=== PATIENT | male | born 1940 | race African-American/Black ===

== ENCOUNTER 2020-07-22 15:38 | Inpatient (IN) | payer MEDICAID, OTHER ==
[~2020-07-22] VITALS: Ht 172.7 cm; Wt 70.8 kg
[2020-07-22 16:50] LABS: HEMATOCRIT. 33.2 % (42.0-52.0); HEMOGLOBIN. 10.9 g/dL (14.0-18.0); MEAN CORPUSCULAR HEMOGLOBIN 29.9 pg (28.0-32.0); MEAN CORPUSCULAR VOLUME 91.1 fL (80.0-94.0); MEAN PLATELET VOLUME 8.8 fl (7.4-10.4); PLATELET 276 x1000/uL (130-400); RED BLOOD CELL COUNT 3.65 mill/uL (4.7-6.1); RED CELL DISTRIBUTION WIDTH 14.2 % (11.6-14.6)
[2020-07-22 16:59] LABS: CHLORIDE 107 mEq/L (98-107); INR 1.1; PROTHROMBIN TIME 11.3 sec (9.6-11.0)
[2020-07-22 17:21] LABS: PLATELET ESTIMATE NORMAL
[2020-07-22] MEDS ORDERED: LIDOCAINE HCL/EPINEPHRINE 1%-EPI 1:100,000 50 ML VIAL INFIL ONE (19:45)
[2020-07-22] MEDS ORDERED: LIDOCAINE HCL/EPINEPHRINE 1%-EPI 1:100,000 50 ML VIAL INFIL NR (20:00)
[2020-07-22] MEDS ORDERED: BACITRACIN 15GM TUBE TOP ONE (20:06)
[2020-07-22] MEDS ORDERED: THROMBIN (BOVINE) 5000 UNITS/VIAL TOP ONE (20:07)
[2020-07-22] MEDS ORDERED: BACITRACIN 50,000 UNITS/VIAL ONE (20:07)
[2020-07-22] MEDS ORDERED: NEOSTIGMINE METHYLSULFATE 1MG/ML 10 ML VIAL ONE (20:47)
[2020-07-22] MEDS ORDERED: FENTANYL CITRATE/PF 50MCG/ML 2ML VIAL ONE (20:47)
[2020-07-22] MEDS ORDERED: ROCURONIUM BROMIDE 10MG/ML VIAL 5ML IV ONE ×2 (20:47→21:07)
[2020-07-22] MEDS ORDERED: MIDAZOLAM HCL 2 MG/2 ML VIAL ONE (20:47)
[2020-07-22] MEDS ORDERED: PROPOFOL 200MG/20ML VIAL IV ONE (20:47)
[2020-07-22] MEDS ORDERED: SODIUM CHLORIDE 0.9% 10ML VIAL ONE (20:48)
[2020-07-22] MEDS ORDERED: SUCCINYLCHOLINE CHLORIDE 200MG/10ML IV ONE (20:48)
[2020-07-22] MEDS ORDERED: DEXAMETHASONE 4MG/ML 1ML VIAL ONE ×2 (20:48→21:27)
[2020-07-22] MEDS ORDERED: GLYCOPYRROLATE 0.2 MG/ML 2ML VIAL ONE (20:48)
[2020-07-22] MEDS ORDERED: METOCLOPRAMIDE HCL 10MG/2ML VIAL ONE (20:48)
[2020-07-22] MEDS ORDERED: PHENYLEPHRINE HCL 10 MG/ML 1ML (IV VIAL) IV ONE (20:48)
[2020-07-22] MEDS ORDERED: EPHEDRINE SULFATE 50MG/ML VIAL ONE (20:48)
[2020-07-22] MEDS ORDERED: ONDANSETRON HCL 4MG/2ML INJ ONE (20:48)
[2020-07-22] MEDS ORDERED: CEFAZOLIN SODIUM 1000MG/VIAL ONE (20:48)
[2020-07-22] MEDS ORDERED: ETOMIDATE 2MG/ML 10ML VIAL IV ONE (20:55)
[2020-07-22] MEDS ORDERED: LEVETIRACETAM 500MG PREMIX 100 ML IV NR (21:15)
[2020-07-22] MEDS ORDERED: NICARDIPINE 100 MG in SODIUM CHLORIDE 0.9% 60 ML IV PRN (21:30)
[2020-07-22] MEDS ORDERED: SODIUM CHLORIDE 0.9% 1,000 ML IV ONE (21:45)
[2020-07-22] MEDS ORDERED: ONDANSETRON HCL 4MG/2ML INJ IV PRN (21:45)
[2020-07-22] MEDS ORDERED: HYDROMORPHONE HCL/PF 2MG/ML CPJ IV PRN (21:45)
[2020-07-22] MEDS ORDERED: MORPHINE SULFATE 2 MG/ML CPJ (NOT FOR IM USE) IV PRN (21:45)
[2020-07-22] MEDS ORDERED: LABETALOL HCL 5MG/ML VIAL 20ML IV ONE (21:49)
[2020-07-22] MEDS ORDERED: CEFAZOLIN 1000MG PREMIX 50 ML IV SCH (22:00)
[2020-07-22 22:30] VITALS: BP 173/90
[2020-07-22 22:45] VITALS: BP 176/89
[2020-07-22 23:00] VITALS: BP 165/95
[2020-07-22 23:15] VITALS: BP 150/100
[2020-07-22] MEDS: NICARDIPINE 100 MG in SODIUM CHLORIDE 0.9% 60 ML IV PRN (23:27)
[2020-07-22] MEDS: MORPHINE SULFATE 4 MG/ML CPJ (NOT FOR IM USE) IV PRN (23:27)
[2020-07-22] MEDS: DEXT 5%/LACTATED RINGERS 1,000 ML IV SCH (23:28)
[2020-07-22 23:30] VITALS: BP 106/61
[2020-07-22 23:45] VITALS: BP 107/55
[2020-07-23] VITALS (82 sets, daily range): BP systolic 80–161; BP diastolic 40–97
[2020-07-23 00:34] LABS: BG CARBOXYHEMOGLOBIN 0.3 % (0.5-1.5); BG FRACTION INSPIRED OXYGEN 60; BG HCO3 ACT 16.7 mmol/L (22.0-26.0); BG METHEMOGLOBIN 0.3 % (0.0-1.5); BG OXYHEMOGLOBIN 97.4 % (94.0-97.0); BG PCO2 31.4 mmHg (35.0-45.0); BG PH 7.343 (7.350-7.450); BG PO2 124.7 mmHg (75.0-100.0); BG SAMPLE SITE ALINE; BG TOTAL HEMOGLOBIN 10.5 g/dL (12.0-18.0); BG VENT MODE VENT - AC
[2020-07-23] MEDS: PROPOFOL 10MG/ML 100ML 100 ML IV PRN ×4 (02:18→22:38)
[2020-07-23] MEDS: CEFAZOLIN 1000MG PREMIX 50 ML IV SCH ×2 (03:59→14:45)
[2020-07-23 06:17] LABS: HEMATOCRIT. 29.1 % (42.0-52.0); HEMOGLOBIN. 9.7 g/dL (14.0-18.0); MEAN CORPUSCULAR HEMOGLOBIN 30.6 pg (28.0-32.0); MEAN CORPUSCULAR VOLUME 91.3 fL (80.0-94.0); MEAN PLATELET VOLUME 9.2 fl (7.4-10.4); PLATELET 221 x1000/uL (130-400); RED BLOOD CELL COUNT 3.19 mill/uL (4.7-6.1); RED CELL DISTRIBUTION WIDTH 13.9 % (11.6-14.6)
[2020-07-23 07:07] LABS: CLARITY URINE CLOUDY (CLEAR); COLOR URINE DARK YELLOW (YELLOW); KETONES URINE TRACE (NEGATIVE); LEUKOCYTE ESTERASE URINE TRACE (NEGATIVE); NITRITE URINE NEGATIVE (NEGATIVE); OCCULT BLOOD URINE 1+ (NEGATIVE); PROTEIN URINE 2+ (NEGATIVE); SPECIFIC GRAVITY URINE 1.026 (1.005-1.030)
[2020-07-23 07:43] LABS: *BARBITURATES SCREEN URINE NEGATIVE (NEGATIVE); *BENZODIAZEPINES SCREEN URINE PRESUMTIVE POSITIVE (NEGATIVE); *COCAINE SCREEN URINE NEGATIVE (NEGATIVE)
[2020-07-23 07:44] LABS: *AMPHETAMINES SCREEN URINE NEGATIVE (NEGATIVE); METHADONE URINE SCREEN NEGATIVE (NEGATIVE); OPIATES URINE SCREEN NEGATIVE (NEGATIVE)
[2020-07-23 07:45] LABS: CANNABINOID URINE SCREEN NEGATIVE (NEGATIVE); PHENCYCLIDINE URINE SCREEN NEGATIVE (NEGATIVE)
[2020-07-23 08:38] LABS: BG BASE EXCESS -7.3 mmol/L (-2.0-2.0); BG CARBOXYHEMOGLOBIN 0.4 % (0.5-1.5); BG HCO3 ACT 16.6 mmol/L (22.0-26.0); BG METHEMOGLOBIN 0.4 % (0.0-1.5); BG OXYHEMOGLOBIN 98.2 % (94.0-97.0); BG PCO2 27.8 mmHg (35.0-45.0); BG PH 7.395 (7.350-7.450); BG PO2 165.7 mmHg (75.0-100.0); BG SAMPLE SITE ALINE; BG TOTAL HEMOGLOBIN 8.6 g/dL (12.0-18.0); BG VENT MODE VENT - AC
[2020-07-23] MEDS: DEXAMETHASONE 4MG/ML 1ML VIAL IV SCH ×3 (08:56→17:54)
[2020-07-23] MEDS: PANTOPRAZOLE SODIUM 40 MG/VIAL IV SCH (08:56)
[2020-07-23] MEDS ORDERED: LEVETIRACETAM 500MG PREMIX 100 ML IV SCH (09:00)
[2020-07-23] MEDS: LEVETIRACETAM 500MG PREMIX 100 ML IV SCH ×2 (12:24→22:00)
[2020-07-23 14:46] LABS: PLATELET ESTIMATE NORMAL
[2020-07-23] MEDS: NICARDIPINE 100 MG in SODIUM CHLORIDE 0.9% 60 ML IV PRN (22:02)
[2020-07-23] MEDS: DEXT 5%/LACTATED RINGERS 1,000 ML IV SCH (22:05)
[2020-07-24] VITALS (78 sets, daily range): BP systolic 95–151; BP diastolic 40–75
[2020-07-24] MEDS: DEXAMETHASONE 4MG/ML 1ML VIAL IV SCH ×4 (00:33→18:24)
[2020-07-24] MEDS: CEFAZOLIN 1000MG PREMIX 50 ML IV SCH ×2 (02:20→14:43)
[2020-07-24 05:50] LABS: HEMATOCRIT. 28.5 % (42.0-52.0); HEMOGLOBIN. 9.4 g/dL (14.0-18.0); MEAN CORPUSCULAR HEMOGLOBIN 29.9 pg (28.0-32.0); MEAN CORPUSCULAR VOLUME 90.8 fL (80.0-94.0); MEAN PLATELET VOLUME 8.9 fl (7.4-10.4); PLATELET 238 x1000/uL (130-400); RED BLOOD CELL COUNT 3.14 mill/uL (4.7-6.1); RED CELL DISTRIBUTION WIDTH 14.4 % (11.6-14.6)
[2020-07-24] MEDS: PROPOFOL 10MG/ML 100ML 100 ML IV PRN ×3 (06:19→22:44)
[2020-07-24] MEDS ORDERED: BACITRACIN 15GM TUBE TOP ONE (06:56)
[2020-07-24] MEDS ORDERED: BACITRACIN 50,000 UNITS/VIAL ONE (06:57)
[2020-07-24] MEDS ORDERED: THROMBIN (BOVINE) 5000 UNITS/VIAL TOP ONE (06:57)
[2020-07-24] MEDS ORDERED: SODIUM CHLORIDE 0.9% INJ 10ML FLUSH IVF ONE (06:57)
[2020-07-24] MEDS ORDERED: ROCURONIUM BROMIDE 10MG/ML VIAL 5ML IV ONE (07:10)
[2020-07-24] MEDS ORDERED: PHENYLEPHRINE HCL 10 MG/ML 1ML (IV VIAL) IV ONE (07:39)
[2020-07-24] MEDS ORDERED: CEFAZOLIN SODIUM 1000MG/VIAL ONE (07:39)
[2020-07-24] MEDS: PANTOPRAZOLE SODIUM 40 MG/VIAL IV SCH (09:44)
[2020-07-24] MEDS: LEVETIRACETAM 500MG PREMIX 100 ML IV SCH ×2 (09:45→21:56)
[2020-07-24 11:23] LABS: PLATELET ESTIMATE NORMAL
[2020-07-24 11:48] LABS: BG BASE EXCESS -13.5 mmol/L (-2.0-2.0); BG CARBOXYHEMOGLOBIN 0.2 % (0.5-1.5); BG FRACTION INSPIRED OXYGEN 45; BG HCO3 ACT 10.2 mmol/L (22.0-26.0); BG METHEMOGLOBIN 1.3 % (0.0-1.5); BG OXYHEMOGLOBIN 96.5 % (94.0-97.0); BG PH 7.397 (7.350-7.450); BG PO2 173.1 mmHg (75.0-100.0); BG SAMPLE SITE ALINE; BG TOTAL HEMOGLOBIN 5.4 g/dL (12.0-18.0); BG TOTAL RESPIRATORY RATE 18 b/min; BG VENT MODE VENT - AC
[2020-07-24] MEDS: NICARDIPINE 100 MG in SODIUM CHLORIDE 0.9% 60 ML IV PRN (13:43)
[2020-07-24] MEDS: DEXT 5%/LACTATED RINGERS 1,000 ML IV SCH (14:43)
[2020-07-24 17:10] LABS: BG BASE EXCESS -5.6 mmol/L (-2.0-2.0); BG CARBOXYHEMOGLOBIN 0.3 % (0.5-1.5); BG DEOXYHEMOGLOBIN 1.7 % (0.0-5.0); BG HCO3 ACT 17.4 mmol/L (22.0-26.0); BG METHEMOGLOBIN 0.2 % (0.0-1.5); BG OXYGEN SATURATION 98.3 % (92.0-98.5); BG OXYHEMOGLOBIN 97.8 % (94.0-97.0); BG PCO2 26.2 mmHg (35.0-45.0); BG PO2 141.3 mmHg (75.0-100.0); BG SAMPLE SITE ALINE; BG TOTAL HEMOGLOBIN 9.9 g/dL (12.0-18.0); BG VENT MODE VENT - AC
[2020-07-24] MEDS: MORPHINE SULFATE 4 MG/ML CPJ (NOT FOR IM USE) IV PRN (21:58)
[2020-07-24] MEDS ORDERED: DEXAMETHASONE 4MG/ML 1ML VIAL IV SCH (22:00)
[2020-07-24] MEDS: DEXAMETHASONE 10 MG/ML VIAL IV SCH (22:12)
[2020-07-24] MEDS ORDERED: DEXTROSE 50% WATER 50ML SYRINGE IV PRN (23:45)
[2020-07-24] MEDS: BLOOD SUGAR DIAGNOSTIC STRIP TEST SCH (23:55)
[2020-07-25] VITALS (88 sets, daily range): BP systolic 57–194; BP diastolic 35–126
[2020-07-25] MEDS: INSULIN LISPRO 100 UNITS/ML SUBCUT SCH ×5 (00:01→23:16)
[2020-07-25] MEDS: NICARDIPINE 100 MG in SODIUM CHLORIDE 0.9% 60 ML IV PRN ×3 (00:12→13:34)
[2020-07-25] MEDS: CEFAZOLIN 1000MG PREMIX 50 ML IV SCH ×3 (02:49→17:01)
[2020-07-25] MEDS: DEXAMETHASONE 10 MG/ML VIAL IV SCH ×4 (04:33→21:00)
[2020-07-25] MEDS: BLOOD SUGAR DIAGNOSTIC STRIP TEST SCH ×4 (05:52→23:08)
[2020-07-25 05:58] LABS: HEMATOCRIT. 26.6 % (42.0-52.0); MEAN CORPUSCULAR HEMOGLOBIN 30.2 pg (28.0-32.0); MEAN CORPUSCULAR VOLUME 89.1 fL (80.0-94.0); PLATELET 244 x1000/uL (130-400); RED BLOOD CELL COUNT 2.99 mill/uL (4.7-6.1)
[2020-07-25] MEDS ORDERED: MORPHINE SULFATE 4 MG/ML CPJ (NOT FOR IM USE) IV SCH (07:00)
[2020-07-25] MEDS: DEXT 5%/LACTATED RINGERS 1,000 ML IV SCH (08:00)
[2020-07-25] MEDS: PROPOFOL 10MG/ML 100ML 100 ML IV PRN ×3 (09:22→23:14)
[2020-07-25] MEDS: PANTOPRAZOLE SODIUM 40 MG/VIAL IV SCH (09:41)
[2020-07-25] MEDS: LEVETIRACETAM 500MG PREMIX 100 ML IV SCH ×2 (09:42→20:59)
[2020-07-25 10:14] LABS: PLATELET ESTIMATE NORMAL
[2020-07-25] MEDS: MORPHINE SULFATE 4 MG/ML CPJ (NOT FOR IM USE) IV PRN ×2 (10:29→23:11)
[2020-07-25] MEDS ORDERED: CEFAZOLIN SODIUM 1000MG/VIAL IV SCH (14:00)
[2020-07-25] MEDS ORDERED: PROPOFOL 10MG/ML 100ML 100 ML IV PRN (18:00)
[2020-07-26] VITALS (79 sets, daily range): BP systolic -5–140; BP diastolic -5–117
[2020-07-26] MEDS: CEFAZOLIN 1000MG PREMIX 50 ML IV SCH ×3 (01:34→17:17)
[2020-07-26] MEDS: DEXAMETHASONE 10 MG/ML VIAL IV SCH (04:28)
[2020-07-26] MEDS: PROPOFOL 10MG/ML 100ML 100 ML IV PRN (04:30)
[2020-07-26 05:35] LABS: HEMATOCRIT. 22.1 % (42.0-52.0); HEMOGLOBIN. 7.4 g/dL (14.0-18.0); MEAN CORPUSCULAR VOLUME 89.3 fL (80.0-94.0); MEAN PLATELET VOLUME 9.1 fl (7.4-10.4); PLATELET 183 x1000/uL (130-400); RED BLOOD CELL COUNT 2.47 mill/uL (4.7-6.1); RED CELL DISTRIBUTION WIDTH 13.9 % (11.6-14.6)
[2020-07-26] MEDS: INSULIN LISPRO 100 UNITS/ML SUBCUT SCH ×3 (06:06→17:16)
[2020-07-26] MEDS: BLOOD SUGAR DIAGNOSTIC STRIP TEST SCH ×3 (06:06→17:17)
[2020-07-26] MEDS: DEXT 5%/LACTATED RINGERS 1,000 ML IV SCH (06:08)
[2020-07-26 07:37] LABS: PLATELET ESTIMATE NORMAL
[2020-07-26] MEDS: LEVETIRACETAM 500MG PREMIX 100 ML IV SCH ×2 (08:32→21:21)
[2020-07-26] MEDS: PANTOPRAZOLE SODIUM 40 MG/VIAL IV SCH (08:32)
[2020-07-26] MEDS: MORPHINE SULFATE 4 MG/ML CPJ (NOT FOR IM USE) IV PRN (08:35)
[2020-07-26 09:10] LABS: BG BASE EXCESS -3.5 mmol/L (-2.0-2.0); BG CARBOXYHEMOGLOBIN 0.3 % (0.5-1.5); BG DEOXYHEMOGLOBIN 1.2 % (0.0-5.0); BG FRACTION INSPIRED OXYGEN 40; BG HCO3 ACT 19.8 mmol/L (22.0-26.0); BG METHEMOGLOBIN 0.3 % (0.0-1.5); BG OXYGEN SATURATION 98.8 % (92.0-98.5); BG OXYHEMOGLOBIN 98.2 % (94.0-97.0); BG PCO2 28.7 mmHg (35.0-45.0); BG PH 7.456 (7.350-7.450); BG SAMPLE SITE ALINE; BG TOTAL HEMOGLOBIN 8.1 g/dL (12.0-18.0); BG VENT MODE VENT - AC
[2020-07-26] MEDS ORDERED: THROMBIN (BOVINE) 5000 UNITS/VIAL TOP ONE ×2 (09:58→10:00)
[2020-07-26] MEDS ORDERED: BACITRACIN 50,000 UNITS/VIAL ONE (09:59)
[2020-07-26] MEDS ORDERED: LACTATED RINGERS 3,000 ML IV ONE (09:59)
[2020-07-26] MEDS ORDERED: SODIUM CHLORIDE 0.9% INJ 10ML FLUSH IVF ONE (09:59)
[2020-07-26] MEDS: NICARDIPINE 100 MG in SODIUM CHLORIDE 0.9% 60 ML IV PRN (11:47)
[2020-07-26] MEDS ORDERED: FENTANYL CITRATE/PF 50MCG/ML 5ML VIAL ONE (13:28)
[2020-07-26] MEDS ORDERED: BACITRACIN/POLYMYXIN B SULFATE OINT 28.35GM TOP ONE (14:45)
[2020-07-26] MEDS ORDERED: VECURONIUM BROMIDE 10 MG/VIAL IV ONE (15:07)
[2020-07-26] MEDS ORDERED: CEFAZOLIN SODIUM 1000MG/VIAL ONE (15:07)
[2020-07-26] MEDS ORDERED: SODIUM CHLORIDE 0.9% 10ML VIAL ONE (15:07)
[2020-07-26] MEDS ORDERED: DEXAMETHASONE 4MG/ML 1ML VIAL ONE (15:07)
[2020-07-27] VITALS (81 sets, daily range): BP systolic 68–146; BP diastolic 52–73
[2020-07-27] MEDS: BLOOD SUGAR DIAGNOSTIC STRIP TEST SCH ×5 (00:05→23:11)
[2020-07-27] MEDS: INSULIN LISPRO 100 UNITS/ML SUBCUT SCH ×5 (00:07→23:16)
[2020-07-27] MEDS: IPRATROPIUM BROMIDE (0.02%) 0.5MG/2.5ML NEB HHN SCH ×4 (00:52→21:25)
[2020-07-27] MEDS: CEFAZOLIN 1000MG PREMIX 50 ML IV SCH ×2 (02:30→09:43)
[2020-07-27] MEDS: MORPHINE SULFATE 4 MG/ML CPJ (NOT FOR IM USE) IV PRN ×3 (02:31→17:22)
[2020-07-27 05:42] LABS: HEMATOCRIT. 25.4 % (42.0-52.0); HEMOGLOBIN. 8.5 g/dL (14.0-18.0); MEAN CORPUSCULAR HEMOGLOBIN 29.7 pg (28.0-32.0); MEAN CORPUSCULAR VOLUME 88.6 fL (80.0-94.0); MEAN PLATELET VOLUME 9.1 fl (7.4-10.4); PLATELET 165 x1000/uL (130-400); RED BLOOD CELL COUNT 2.87 mill/uL (4.7-6.1); RED CELL DISTRIBUTION WIDTH 14.5 % (11.6-14.6)
[2020-07-27 08:17] LABS: PLATELET ESTIMATE NORMAL
[2020-07-27] MEDS: LEVETIRACETAM 500MG PREMIX 100 ML IV SCH ×2 (08:42→20:08)
[2020-07-27] MEDS: PANTOPRAZOLE SODIUM 40 MG/VIAL IV SCH (08:42)
[2020-07-27] MEDS: DEXT 5%/LACTATED RINGERS 1,000 ML IV SCH ×2 (08:44→09:20)
[2020-07-27] MEDS ORDERED: LIDOCAINE HCL 1% 20ML VIAL (Pyxis) INJ ONE (09:06)
[2020-07-27 09:54] LABS: BG BASE EXCESS -2.5 mmol/L (-2.0-2.0); BG CARBOXYHEMOGLOBIN 0.3 % (0.5-1.5); BG DEOXYHEMOGLOBIN 1.1 % (0.0-5.0); BG FRACTION INSPIRED OXYGEN 40; BG HCO3 ACT 20.3 mmol/L (22.0-26.0); BG METHEMOGLOBIN 0.3 % (0.0-1.5); BG OXYGEN SATURATION 98.9 % (92.0-98.5); BG OXYHEMOGLOBIN 98.3 % (94.0-97.0); BG PCO2 28.3 mmHg (35.0-45.0); BG PH 7.474 (7.350-7.450); BG PO2 182.1 mmHg (75.0-100.0); BG SAMPLE SITE RIGHT RADIAL; BG TOTAL HEMOGLOBIN 9.3 g/dL (12.0-18.0); BG TOTAL RESPIRATORY RATE 12 b/min; BG VENT MODE VENT - AC
[2020-07-27] MEDS ORDERED: PIPERACILLIN/TAZOBACTAM 3.375 G in DEXT 5% WATER 100 ML IV SCH (10:15)
[2020-07-27] MEDS: PIPERACILLIN/TAZOBACTAM 2.25 G in DEXTROSE 5% WATER 50 ML IV SCH ×3 (11:28→23:12)
[2020-07-27] MEDS: NICARDIPINE 100 MG in SODIUM CHLORIDE 0.9% 60 ML IV PRN (11:28)
[2020-07-28] VITALS (97 sets, daily range): BP systolic 100–159; BP diastolic 45–90
[2020-07-28] MEDS: DEXT 5%/LACTATED RINGERS 1,000 ML IV SCH ×2 (03:05→18:23)
[2020-07-28] MEDS: IPRATROPIUM BROMIDE (0.02%) 0.5MG/2.5ML NEB HHN SCH ×4 (03:33→21:40)
[2020-07-28] MEDS: BLOOD SUGAR DIAGNOSTIC STRIP TEST SCH ×4 (05:02→23:28)
[2020-07-28] MEDS: PIPERACILLIN/TAZOBACTAM 2.25 G in DEXTROSE 5% WATER 50 ML IV SCH ×4 (05:12→23:31)
[2020-07-28] MEDS: INSULIN LISPRO 100 UNITS/ML SUBCUT SCH ×4 (05:14→23:31)
[2020-07-28 05:56] LABS: HEMATOCRIT. 27.9 % (42.0-52.0); HEMOGLOBIN. 9.3 g/dL (14.0-18.0); MEAN CORPUSCULAR HEMOGLOBIN 29.4 pg (28.0-32.0); MEAN CORPUSCULAR VOLUME 88.8 fL (80.0-94.0); PLATELET 180 x1000/uL (130-400); RED BLOOD CELL COUNT 3.14 mill/uL (4.7-6.1); RED CELL DISTRIBUTION WIDTH 14.7 % (11.6-14.6)
[2020-07-28] MEDS: NICARDIPINE 100 MG in SODIUM CHLORIDE 0.9% 60 ML IV PRN (06:38)
[2020-07-28 08:09] LABS: PLATELET ESTIMATE NORMAL
[2020-07-28] MEDS: PANTOPRAZOLE SODIUM 40 MG/VIAL IV SCH (08:34)
[2020-07-28] MEDS: LEVETIRACETAM 500MG PREMIX 100 ML IV SCH ×2 (08:34→21:06)
[2020-07-28] MEDS ORDERED: FOLIC ACID 1 MG, THIAMINE HCL 100 MG, MVI, ADULT NO.1 10 ML in DEXTROSE 5% WATER 1,000 ML IV ONE ×2 (17:00→21:00)
[2020-07-28] MEDS ORDERED: FOLIC ACID 1 MG, THIAMINE HCL 100 MG, MVI, ADULT NO.1 10 ML in DEXT 5%/LACTATED RINGERS... IV ONE (21:00)
[2020-07-29] VITALS (96 sets, daily range): BP systolic 103–147; BP diastolic 63–95
[2020-07-29] MEDS: IPRATROPIUM BROMIDE (0.02%) 0.5MG/2.5ML NEB HHN SCH ×4 (03:24→20:33)
[2020-07-29] MEDS: BLOOD SUGAR DIAGNOSTIC STRIP TEST SCH ×4 (06:03→23:49)
[2020-07-29] MEDS: PIPERACILLIN/TAZOBACTAM 2.25 G in DEXTROSE 5% WATER 50 ML IV SCH ×4 (06:05→23:49)
[2020-07-29] MEDS: INSULIN LISPRO 100 UNITS/ML SUBCUT SCH ×4 (06:06→23:49)
[2020-07-29 08:28] LABS: BG BASE EXCESS -0.3 mmol/L (-2.0-2.0); BG CARBOXYHEMOGLOBIN 0.3 % (0.5-1.5); BG HCO3 ACT 22.7 mmol/L (22.0-26.0); BG METHEMOGLOBIN 0.3 % (0.0-1.5); BG OXYHEMOGLOBIN 98.4 % (94.0-97.0); BG PCO2 31.2 mmHg (35.0-45.0); BG PO2 168.2 mmHg (75.0-100.0); BG SAMPLE SITE RIGHT RADIAL; BG TOTAL HEMOGLOBIN 10.2 g/dL (12.0-18.0); BG VENT MODE VENT - AC
[2020-07-29] MEDS: PANTOPRAZOLE SODIUM 40 MG/VIAL IV SCH (08:42)
[2020-07-29] MEDS: LEVETIRACETAM 500MG PREMIX 100 ML IV SCH ×2 (08:42→22:01)
[2020-07-29] MEDS: DEXT 5%/LACTATED RINGERS 1,000 ML IV SCH (12:00)
[2020-07-29 12:12] LABS: HEMATOCRIT. 27.6 % (42.0-52.0); HEMOGLOBIN. 9.1 g/dL (14.0-18.0); MEAN CORPUSCULAR HEMOGLOBIN 29.4 pg (28.0-32.0); MEAN CORPUSCULAR VOLUME 89.8 fL (80.0-94.0); MEAN PLATELET VOLUME 8.6 fl (7.4-10.4); PLATELET 155 x1000/uL (130-400); RED BLOOD CELL COUNT 3.08 mill/uL (4.7-6.1); RED CELL DISTRIBUTION WIDTH 14.6 % (11.6-14.6)
[2020-07-29] MEDS: FOLIC ACID 1 MG, THIAMINE HCL 100 MG, MVI, ADULT NO.1 10 ML in DEXT 5%/LACTATED RINGERS... IV SCH (15:40)
[2020-07-30] VITALS (96 sets, daily range): BP systolic 100–164; BP diastolic 65–102
[2020-07-30 00:40] LABS: PLATELET ESTIMATE NORMAL
[2020-07-30] MEDS: IPRATROPIUM BROMIDE (0.02%) 0.5MG/2.5ML NEB HHN SCH ×4 (02:53→22:34)
[2020-07-30 04:08] LABS: HEMATOCRIT. 27.7 % (42.0-52.0); MEAN CORPUSCULAR HEMOGLOBIN 29.1 pg (28.0-32.0); MEAN CORPUSCULAR VOLUME 89.9 fL (80.0-94.0); MEAN PLATELET VOLUME 8.7 fl (7.4-10.4); PLATELET 153 x1000/uL (130-400); RED BLOOD CELL COUNT 3.09 mill/uL (4.7-6.1); RED CELL DISTRIBUTION WIDTH 14.3 % (11.6-14.6)
[2020-07-30] MEDS: BLOOD SUGAR DIAGNOSTIC STRIP TEST SCH ×4 (05:49→23:33)
[2020-07-30] MEDS: PIPERACILLIN/TAZOBACTAM 2.25 G in DEXTROSE 5% WATER 50 ML IV SCH ×2 (05:49→11:30)
[2020-07-30] MEDS: INSULIN LISPRO 100 UNITS/ML SUBCUT SCH ×4 (05:50→23:34)
[2020-07-30] MEDS: PANTOPRAZOLE SODIUM 40 MG/VIAL IV SCH (09:24)
[2020-07-30] MEDS: LEVETIRACETAM 500MG PREMIX 100 ML IV SCH ×2 (09:24→20:29)
[2020-07-30] MEDS: FOLIC ACID 1 MG, THIAMINE HCL 100 MG, MVI, ADULT NO.1 10 ML in DEXT 5%/LACTATED RINGERS... IV SCH (16:31)
[2020-07-30] MEDS: DEXTROSE 5% WATER 1,000 ML IV SCH (16:35)
[2020-07-30 17:14] LABS: PLATELET ESTIMATE NORMAL
[2020-07-30] MEDS: PIPERACILLIN/TAZOBACTAM 3.375 G in DEXT 5% WATER 100 ML IV SCH ×2 (17:26→23:33)
[2020-07-31] VITALS (96 sets, daily range): BP systolic 84–146; BP diastolic 58–78
[2020-07-31] MEDS: DEXTROSE 5% WATER 1,000 ML IV SCH ×2 (01:25→18:46)
[2020-07-31] MEDS: NICARDIPINE 100 MG in SODIUM CHLORIDE 0.9% 60 ML IV PRN (03:08)
[2020-07-31] MEDS: IPRATROPIUM BROMIDE (0.02%) 0.5MG/2.5ML NEB HHN SCH ×4 (03:46→21:10)
[2020-07-31 05:07] LABS: HEMATOCRIT. 29.3 % (42.0-52.0); HEMOGLOBIN. 9.4 g/dL (14.0-18.0); MEAN CORPUSCULAR VOLUME 90.2 fL (80.0-94.0); MEAN PLATELET VOLUME 9.3 fl (7.4-10.4); PLATELET 149 x1000/uL (130-400); RED BLOOD CELL COUNT 3.25 mill/uL (4.7-6.1); RED CELL DISTRIBUTION WIDTH 14.7 % (11.6-14.6)
[2020-07-31] MEDS: BLOOD SUGAR DIAGNOSTIC STRIP TEST SCH ×3 (05:43→18:46)
[2020-07-31] MEDS: PIPERACILLIN/TAZOBACTAM 3.375 G in DEXT 5% WATER 100 ML IV SCH ×3 (05:43→18:48)
[2020-07-31] MEDS: INSULIN LISPRO 100 UNITS/ML SUBCUT SCH ×3 (05:43→18:00)
[2020-07-31] MEDS: LEVETIRACETAM 500MG PREMIX 100 ML IV SCH ×2 (08:27→21:20)
[2020-07-31] MEDS: PANTOPRAZOLE SODIUM 40 MG/VIAL IV SCH (08:27)
[2020-07-31 11:27] LABS: PLATELET ESTIMATE NORMAL
[2020-07-31] MEDS: FOLIC ACID 1 MG, THIAMINE HCL 100 MG, MVI, ADULT NO.1 10 ML in DEXT 5%/LACTATED RINGERS... IV SCH (16:00)
[2020-08-01] VITALS (96 sets, daily range): BP systolic 98–165; BP diastolic 53–81
[2020-08-01] MEDS: BLOOD SUGAR DIAGNOSTIC STRIP TEST SCH ×5 (00:44→23:33)
[2020-08-01] MEDS: PIPERACILLIN/TAZOBACTAM 3.375 G in DEXT 5% WATER 100 ML IV SCH ×2 (00:44→06:05)
[2020-08-01] MEDS: IPRATROPIUM BROMIDE (0.02%) 0.5MG/2.5ML NEB HHN SCH ×4 (02:45→21:02)
[2020-08-01 05:50] LABS: CHLORIDE 116 mEq/L (98-107)
[2020-08-01 05:54] LABS: HEMATOCRIT. 27.4 % (42.0-52.0); HEMOGLOBIN. 8.9 g/dL (14.0-18.0); MEAN CORPUSCULAR HEMOGLOBIN 29.3 pg (28.0-32.0); MEAN CORPUSCULAR VOLUME 89.8 fL (80.0-94.0); RED BLOOD CELL COUNT 3.05 mill/uL (4.7-6.1); RED CELL DISTRIBUTION WIDTH 13.8 % (11.6-14.6)
[2020-08-01] MEDS: DEXTROSE 5% WATER 1,000 ML IV SCH ×2 (06:06→23:53)
[2020-08-01] MEDS: INSULIN LISPRO 100 UNITS/ML SUBCUT SCH ×5 (06:42→23:34)
[2020-08-01] MEDS: PANTOPRAZOLE SODIUM 40 MG/VIAL IV SCH (08:13)
[2020-08-01] MEDS: LEVETIRACETAM 500MG PREMIX 100 ML IV SCH ×2 (08:13→20:40)
[2020-08-01 09:13] LABS: PLATELET ESTIMATE NORMAL
[2020-08-01 09:14] LABS: PLATELET 153 x1000/uL (130-400)
[2020-08-01] MEDS: THIAMINE HCL IV SCH (17:06)
[2020-08-01] MEDS: LACTATED RINGERS IV SCH (17:06)
[2020-08-01] MEDS: FOLIC ACID IV SCH (17:06)
[2020-08-01] MEDS: DEXT IV SCH (17:06)
[2020-08-01] MEDS: NICARDIPINE 100 MG in SODIUM CHLORIDE 0.9% 60 ML IV PRN (23:53)
[2020-08-02] VITALS (101 sets, daily range): BP systolic 90–163; BP diastolic 55–113
[2020-08-02] MEDS: IPRATROPIUM BROMIDE (0.02%) 0.5MG/2.5ML NEB HHN SCH ×4 (03:27→20:55)
[2020-08-02] MEDS: BLOOD SUGAR DIAGNOSTIC STRIP TEST SCH ×3 (05:36→18:15)
[2020-08-02] MEDS: INSULIN LISPRO 100 UNITS/ML SUBCUT SCH ×3 (05:36→18:00)
[2020-08-02 05:57] LABS: HEMATOCRIT. 27.6 % (42.0-52.0); MEAN CORPUSCULAR HEMOGLOBIN 29.3 pg (28.0-32.0); MEAN CORPUSCULAR VOLUME 89.4 fL (80.0-94.0); MEAN PLATELET VOLUME 11.2 fl (7.4-10.4); PLATELET 108 x1000/uL (130-400); RED BLOOD CELL COUNT 3.08 mill/uL (4.7-6.1)
[2020-08-02 05:59] LABS: CHLORIDE 111 mEq/L (98-107)
[2020-08-02 06:56] LABS: BG BASE EXCESS -0.4 mmol/L (-2.0-2.0); BG CARBOXYHEMOGLOBIN 0.2 % (0.5-1.5); BG DEOXYHEMOGLOBIN 1.1 % (0.0-5.0); BG FRACTION INSPIRED OXYGEN 40; BG HCO3 ACT 22.4 mmol/L (22.0-26.0); BG METHEMOGLOBIN 0.2 % (0.0-1.5); BG OXYGEN SATURATION 98.9 % (92.0-98.5); BG OXYHEMOGLOBIN 98.5 % (94.0-97.0); BG PCO2 30.2 mmHg (35.0-45.0); BG PH 7.489 (7.350-7.450); BG PO2 201.8 mmHg (75.0-100.0); BG SAMPLE SITE RIGHT RADIAL; BG TOTAL HEMOGLOBIN 9.8 g/dL (12.0-18.0); BG VENT MODE VENT - AC
[2020-08-02] MEDS: LEVETIRACETAM 500MG PREMIX 100 ML IV SCH ×2 (08:32→20:16)
[2020-08-02] MEDS: PANTOPRAZOLE SODIUM 40 MG/VIAL IV SCH (08:32)
[2020-08-02] MEDS: THIAMINE HCL IV SCH (08:56)
[2020-08-02] MEDS: DEXT IV SCH (08:56)
[2020-08-02] MEDS: FOLIC ACID IV SCH (08:56)
[2020-08-02] MEDS: LACTATED RINGERS IV SCH (08:56)
[2020-08-02 11:50] LABS: PLATELET ESTIMATE NORMAL
[2020-08-02] MEDS: MORPHINE SULFATE 4 MG/ML CPJ (NOT FOR IM USE) IV PRN ×2 (15:48→20:17)
[2020-08-02] MEDS: DEXTROSE 5% WATER 1,000 ML IV SCH (18:16)
[2020-08-03] VITALS (98 sets, daily range): BP systolic 91–153; BP diastolic 48–85
[2020-08-03] MEDS: BLOOD SUGAR DIAGNOSTIC STRIP TEST SCH ×4 (00:14→17:37)
[2020-08-03] MEDS: NICARDIPINE 100 MG in SODIUM CHLORIDE 0.9% 60 ML IV PRN ×2 (01:12→21:55)
[2020-08-03] MEDS: IPRATROPIUM BROMIDE (0.02%) 0.5MG/2.5ML NEB HHN SCH ×4 (01:25→21:06)
[2020-08-03] MEDS: INSULIN LISPRO 100 UNITS/ML SUBCUT SCH ×4 (06:00→17:37)
[2020-08-03 06:28] LABS: CHLORIDE 108 mEq/L (98-107)
[2020-08-03 07:23] LABS: BG BASE EXCESS -1.9 mmol/L (-2.0-2.0); BG DEOXYHEMOGLOBIN 1.3 % (0.0-5.0); BG FRACTION INSPIRED OXYGEN 35; BG HCO3 ACT 21.3 mmol/L (22.0-26.0); BG METHEMOGLOBIN 0.4 % (0.0-1.5); BG OXYGEN SATURATION 98.7 % (92.0-98.5); BG OXYHEMOGLOBIN 98.3 % (94.0-97.0); BG PCO2 30.1 mmHg (35.0-45.0); BG PEEP (cmH2O) 0 cmH2O; BG PH 7.467 (7.350-7.450); BG PO2 140.1 mmHg (75.0-100.0); BG SAMPLE SITE RIGHT RADIAL; BG TOTAL HEMOGLOBIN 8.9 g/dL (12.0-18.0); BG VENT MODE VENT - AC
[2020-08-03 07:36] LABS: HEMATOCRIT. 29.3 % (42.0-52.0); HEMOGLOBIN. 9.6 g/dL (14.0-18.0); MEAN CORPUSCULAR HEMOGLOBIN 29.1 pg (28.0-32.0); MEAN CORPUSCULAR VOLUME 89.3 fL (80.0-94.0); MEAN PLATELET VOLUME 9.6 fl (7.4-10.4); PLATELET 212 x1000/uL (130-400); RED BLOOD CELL COUNT 3.28 mill/uL (4.7-6.1); RED CELL DISTRIBUTION WIDTH 13.7 % (11.6-14.6)
[2020-08-03] MEDS: PANTOPRAZOLE SODIUM 40 MG/VIAL IV SCH (09:10)
[2020-08-03] MEDS: LEVETIRACETAM 500MG PREMIX 100 ML IV SCH ×2 (09:10→20:43)
[2020-08-03] MEDS: DEXTROSE 5% WATER 1,000 ML IV SCH (12:31)
[2020-08-03 16:22] LABS: PLATELET ESTIMATE NORMAL
[2020-08-03] MEDS: DEXT IV SCH (17:37)
[2020-08-03] MEDS: LACTATED RINGERS IV SCH (17:37)
[2020-08-03] MEDS: THIAMINE HCL IV SCH (17:37)
[2020-08-03] MEDS: FOLIC ACID IV SCH (17:37)
[2020-08-03] MEDS: MORPHINE SULFATE 4 MG/ML CPJ (NOT FOR IM USE) IV PRN (22:48)
[2020-08-04] VITALS (87 sets, daily range): BP systolic 103–148; BP diastolic 58–78
[2020-08-04] MEDS: BLOOD SUGAR DIAGNOSTIC STRIP TEST SCH ×4 (00:16→17:46)
[2020-08-04] MEDS: MORPHINE SULFATE 4 MG/ML CPJ (NOT FOR IM USE) IV PRN (05:19)
[2020-08-04 05:47] LABS: CHLORIDE 106 mEq/L (98-107)
[2020-08-04 05:54] LABS: HEMOGLOBIN. 9.5 g/dL (14.0-18.0); MEAN CORPUSCULAR HEMOGLOBIN 29.9 pg (28.0-32.0); MEAN CORPUSCULAR VOLUME 88.2 fL (80.0-94.0); MEAN PLATELET VOLUME 9.8 fl (7.4-10.4); PLATELET 287 x1000/uL (130-400); RED BLOOD CELL COUNT 3.18 mill/uL (4.7-6.1); RED CELL DISTRIBUTION WIDTH 13.3 % (11.6-14.6)
[2020-08-04] MEDS: INSULIN LISPRO 100 UNITS/ML SUBCUT SCH ×4 (06:00→17:46)
[2020-08-04] MEDS: DEXTROSE 5% WATER 1,000 ML IV SCH (06:42)
[2020-08-04 07:41] LABS: BG BASE EXCESS 1.2 mmol/L (-2.0-2.0); BG CARBOXYHEMOGLOBIN 0.3 % (0.5-1.5); BG DEOXYHEMOGLOBIN 1.2 % (0.0-5.0); BG FRACTION INSPIRED OXYGEN 35; BG HCO3 ACT 24.6 mmol/L (22.0-26.0); BG METHEMOGLOBIN 0.3 % (0.0-1.5); BG OXYGEN SATURATION 98.8 % (92.0-98.5); BG OXYHEMOGLOBIN 98.2 % (94.0-97.0); BG PCO2 34.3 mmHg (35.0-45.0); BG PEEP (cmH2O) 0 cmH2O; BG PH 7.474 (7.350-7.450); BG PO2 157.3 mmHg (75.0-100.0); BG SAMPLE SITE RIGHT RADIAL; BG TOTAL HEMOGLOBIN 9.2 g/dL (12.0-18.0); BG VENT MODE VENT - AC
[2020-08-04] MEDS: IPRATROPIUM BROMIDE (0.02%) 0.5MG/2.5ML NEB HHN SCH ×4 (07:54→21:03)
[2020-08-04] MEDS: PANTOPRAZOLE SODIUM 40 MG/VIAL IV SCH (08:33)
[2020-08-04] MEDS: LEVETIRACETAM 500MG PREMIX 100 ML IV SCH ×2 (08:33→21:56)
[2020-08-04] MEDS ORDERED: BISACODYL 10MG SUPP PR SCH (11:00)
[2020-08-04] MEDS: METOCLOPRAMIDE HCL 10MG/2ML VIAL IV SCH ×2 (12:49→17:59)
[2020-08-04 16:52] LABS: PLATELET ESTIMATE NORMAL
[2020-08-04] MEDS: FOLIC ACID IV SCH (17:58)
[2020-08-04] MEDS: DEXT IV SCH (17:58)
[2020-08-04] MEDS: LACTATED RINGERS IV SCH (17:58)
[2020-08-04] MEDS: THIAMINE HCL IV SCH (17:58)
[2020-08-05] VITALS (84 sets, daily range): BP systolic 93–181; BP diastolic 49–95
[2020-08-05] MEDS: METOCLOPRAMIDE HCL 10MG/2ML VIAL IV SCH ×5 (00:26→23:10)
[2020-08-05] MEDS: BLOOD SUGAR DIAGNOSTIC STRIP TEST SCH ×5 (00:26→23:21)
[2020-08-05] MEDS: DEXTROSE 5% WATER 1,000 ML IV SCH ×2 (00:26→15:20)
[2020-08-05] MEDS: IPRATROPIUM BROMIDE (0.02%) 0.5MG/2.5ML NEB HHN SCH ×4 (04:32→20:45)
[2020-08-05 05:25] LABS: CHLORIDE 105 mEq/L (98-107)
[2020-08-05 05:28] LABS: HEMATOCRIT. 27.7 % (42.0-52.0); HEMOGLOBIN. 9.1 g/dL (14.0-18.0); MEAN CORPUSCULAR HEMOGLOBIN 28.9 pg (28.0-32.0); MEAN CORPUSCULAR VOLUME 87.7 fL (80.0-94.0); MEAN PLATELET VOLUME 9.4 fl (7.4-10.4); PLATELET 316 x1000/uL (130-400); RED BLOOD CELL COUNT 3.15 mill/uL (4.7-6.1); RED CELL DISTRIBUTION WIDTH 13.6 % (11.6-14.6)
[2020-08-05] MEDS: INSULIN LISPRO 100 UNITS/ML SUBCUT SCH ×5 (05:53→23:21)
[2020-08-05] MEDS: LEVETIRACETAM 500MG PREMIX 100 ML IV SCH ×2 (11:07→20:30)
[2020-08-05] MEDS: PANTOPRAZOLE SODIUM 40 MG/VIAL IV SCH (11:07)
[2020-08-05 13:07] LABS: BG BASE EXCESS 2.9 mmol/L (-2.0-2.0); BG CARBOXYHEMOGLOBIN 0.3 % (0.5-1.5); BG DEOXYHEMOGLOBIN 1.8 % (0.0-5.0); BG FRACTION INSPIRED OXYGEN 35; BG HCO3 ACT 26.4 mmol/L (22.0-26.0); BG METHEMOGLOBIN 0.3 % (0.0-1.5); BG OXYGEN SATURATION 98.2 % (92.0-98.5); BG OXYHEMOGLOBIN 97.6 % (94.0-97.0); BG PCO2 36.2 mmHg (35.0-45.0); BG SAMPLE SITE RIGHT RADIAL; BG TOTAL HEMOGLOBIN 10.2 g/dL (12.0-18.0); BG VENT MODE VENT - CPAP
[2020-08-05] MEDS: DEXT IV SCH (15:12)
[2020-08-05] MEDS: FOLIC ACID IV SCH (15:12)
[2020-08-05] MEDS: THIAMINE HCL IV SCH (15:12)
[2020-08-05] MEDS: LACTATED RINGERS IV SCH (15:12)
[2020-08-05 15:18] LABS: PLATELET ESTIMATE NORMAL
[2020-08-05] MEDS: ACETAMINOPHEN 650MG/20.3ML UDC PO PRN (21:16)
[2020-08-05] MEDS: MORPHINE SULFATE 4 MG/ML CPJ (NOT FOR IM USE) IV PRN (23:09)
[2020-08-06] VITALS (64 sets, daily range): BP systolic 91–147; BP diastolic 51–83
[2020-08-06] MEDS: IPRATROPIUM BROMIDE (0.02%) 0.5MG/2.5ML NEB HHN SCH ×4 (00:59→20:49)
[2020-08-06] MEDS: METOCLOPRAMIDE HCL 10MG/2ML VIAL IV SCH ×3 (05:01→17:25)
[2020-08-06 05:37] LABS: HEMATOCRIT. 23.4 % (42.0-52.0); HEMOGLOBIN. 7.6 g/dL (14.0-18.0); MEAN CORPUSCULAR HEMOGLOBIN 28.6 pg (28.0-32.0); MEAN CORPUSCULAR VOLUME 88.3 fL (80.0-94.0); MEAN PLATELET VOLUME 8.8 fl (7.4-10.4); PLATELET 257 x1000/uL (130-400); RED BLOOD CELL COUNT 2.65 mill/uL (4.7-6.1); RED CELL DISTRIBUTION WIDTH 13.7 % (11.6-14.6)
[2020-08-06] MEDS: INSULIN LISPRO 100 UNITS/ML SUBCUT SCH ×3 (05:47→18:00)
[2020-08-06] MEDS: BLOOD SUGAR DIAGNOSTIC STRIP TEST SCH ×3 (05:47→18:59)
[2020-08-06 05:49] LABS: CHLORIDE 109 mEq/L (98-107)
[2020-08-06] MEDS: PANTOPRAZOLE SODIUM 40 MG/VIAL IV SCH (09:02)
[2020-08-06] MEDS: LEVETIRACETAM 500MG PREMIX 100 ML IV SCH ×2 (09:03→21:15)
[2020-08-06 10:15] LABS: BG BASE EXCESS 2.6 mmol/L (-2.0-2.0); BG CARBOXYHEMOGLOBIN 0.3 % (0.5-1.5); BG DEOXYHEMOGLOBIN 1.3 % (0.0-5.0); BG FRACTION INSPIRED OXYGEN 35; BG HCO3 ACT 26.5 mmol/L (22.0-26.0); BG METHEMOGLOBIN 0.3 % (0.0-1.5); BG OXYGEN SATURATION 98.7 % (92.0-98.5); BG OXYHEMOGLOBIN 98.1 % (94.0-97.0); BG PCO2 37.4 mmHg (35.0-45.0); BG PH 7.468 (7.350-7.450); BG PO2 149.8 mmHg (75.0-100.0); BG SAMPLE SITE LEFT RADIAL; BG TOTAL HEMOGLOBIN 7.7 g/dL (12.0-18.0); BG TOTAL RESPIRATORY RATE 17 b/min; BG VENT MODE VENT - AC
[2020-08-06] MEDS: DEXTROSE 5% WATER 1,000 ML IV SCH (12:38)
[2020-08-06 12:53] LABS: PLATELET ESTIMATE NORMAL
[2020-08-06] MEDS: THIAMINE HCL IV SCH ×2 (14:38→17:25)
[2020-08-06] MEDS: FOLIC ACID IV SCH ×2 (14:38→17:25)
[2020-08-06] MEDS: DEXT IV SCH ×2 (14:38→17:25)
[2020-08-06] MEDS: LACTATED RINGERS IV SCH ×2 (14:38→17:25)
[2020-08-06 16:39] LABS: BG BASE EXCESS 3.8 mmol/L (-2.0-2.0); BG CARBOXYHEMOGLOBIN 0.3 % (0.5-1.5); BG DEOXYHEMOGLOBIN 1.3 % (0.0-5.0); BG FRACTION INSPIRED OXYGEN 35; BG HCO3 ACT 27.5 mmol/L (22.0-26.0); BG METHEMOGLOBIN 0.1 % (0.0-1.5); BG OXYGEN SATURATION 98.7 % (92.0-98.5); BG OXYHEMOGLOBIN 98.3 % (94.0-97.0); BG PCO2 37.2 mmHg (35.0-45.0); BG PH 7.486 (7.350-7.450); BG SAMPLE SITE LEFT RADIAL; BG TOTAL HEMOGLOBIN 7.8 g/dL (12.0-18.0); BG TOTAL RESPIRATORY RATE 23 b/min; BG VENT MODE VENT - SIMV
[2020-08-07] VITALS (40 sets, daily range): BP systolic 103–163; BP diastolic 52–106
[2020-08-07] MEDS: METOCLOPRAMIDE HCL 10MG/2ML VIAL IV SCH ×4 (00:46→17:33)
[2020-08-07] MEDS: IPRATROPIUM BROMIDE (0.02%) 0.5MG/2.5ML NEB HHN SCH ×4 (02:48→20:24)
[2020-08-07] MEDS: ACETAMINOPHEN 650MG/20.3ML UDC PO PRN ×2 (04:51→21:34)
[2020-08-07 05:54] LABS: HEMATOCRIT. 22.1 % (42.0-52.0); HEMOGLOBIN. 7.3 g/dL (14.0-18.0); MEAN CORPUSCULAR HEMOGLOBIN 29.2 pg (28.0-32.0); MEAN CORPUSCULAR VOLUME 87.8 fL (80.0-94.0); MEAN PLATELET VOLUME 8.7 fl (7.4-10.4); PLATELET 283 x1000/uL (130-400); RED BLOOD CELL COUNT 2.51 mill/uL (4.7-6.1); RED CELL DISTRIBUTION WIDTH 13.9 % (11.6-14.6)
[2020-08-07] MEDS: BLOOD SUGAR DIAGNOSTIC STRIP TEST SCH ×4 (06:00→17:31)
[2020-08-07] MEDS: INSULIN LISPRO 100 UNITS/ML SUBCUT SCH ×4 (06:00→17:31)
[2020-08-07 06:04] LABS: CHLORIDE 108 mEq/L (98-107)
[2020-08-07] MEDS: NICARDIPINE 100 MG in SODIUM CHLORIDE 0.9% 60 ML IV PRN (06:05)
[2020-08-07 08:24] LABS: BG BASE EXCESS 1.8 mmol/L (-2.0-2.0); BG CARBOXYHEMOGLOBIN 0.1 % (0.5-1.5); BG DEOXYHEMOGLOBIN 2.1 % (0.0-5.0); BG FRACTION INSPIRED OXYGEN 35; BG HCO3 ACT 25.1 mmol/L (22.0-26.0); BG METHEMOGLOBIN 0.1 % (0.0-1.5); BG OXYGEN SATURATION 97.9 % (92.0-98.5); BG OXYHEMOGLOBIN 97.7 % (94.0-97.0); BG PCO2 34.4 mmHg (35.0-45.0); BG PH 7.481 (7.350-7.450); BG PO2 103.9 mmHg (75.0-100.0); BG SAMPLE SITE RIGHT RADIAL; BG TOTAL HEMOGLOBIN 9.8 g/dL (12.0-18.0); BG VENT MODE VENT - SIMV
[2020-08-07] MEDS: LEVETIRACETAM 500MG PREMIX 100 ML IV SCH ×2 (10:13→21:05)
[2020-08-07] MEDS: AMLODIPINE 10MG TABLET PO SCH (10:13)
[2020-08-07] MEDS: PANTOPRAZOLE SODIUM 40 MG/VIAL IV SCH (10:13)
[2020-08-07] MEDS: LACTULOSE 20G/30ML UDC PO PRN ×2 (10:14→21:33)
[2020-08-07 11:33] LABS: PLATELET ESTIMATE NORMAL
[2020-08-07] MEDS: CLONIDINE 0.1MG TABLET PO PRN (17:34)
[2020-08-07] MEDS ORDERED: MIDAZOLAM 100MG/100ML PMX 100 ML IV PRN (18:45)
[2020-08-07] MEDS ORDERED: FENTANYL CITRATE/PF 2,500 MCG in SODIUM CHLORIDE 0.9% 200 ML IV PRN (18:45)
[2020-08-07] MEDS: LOSARTAN POTASSIUM 50 MG TABLET PO SCH (21:34)
[2020-08-08] VITALS (76 sets, daily range): BP systolic 102–155; BP diastolic 56–94
[2020-08-08] MEDS ORDERED: VANCOMYCIN 1250MG in DEXTROSE 5% WATER 250ML IV NR
[2020-08-08] MEDS: METOCLOPRAMIDE HCL 10MG/2ML VIAL IV SCH ×4 (01:06→18:20)
[2020-08-08] MEDS: IPRATROPIUM BROMIDE (0.02%) 0.5MG/2.5ML NEB HHN SCH ×3 (02:12→15:02)
[2020-08-08 05:57] LABS: HEMATOCRIT. 23.4 % (42.0-52.0); HEMOGLOBIN. 7.6 g/dL (14.0-18.0); MEAN CORPUSCULAR HEMOGLOBIN 28.7 pg (28.0-32.0); MEAN CORPUSCULAR VOLUME 88.1 fL (80.0-94.0); MEAN PLATELET VOLUME 8.1 fl (7.4-10.4); PLATELET 320 x1000/uL (130-400); RED BLOOD CELL COUNT 2.65 mill/uL (4.7-6.1); RED CELL DISTRIBUTION WIDTH 13.6 % (11.6-14.6)
[2020-08-08] MEDS: BLOOD SUGAR DIAGNOSTIC STRIP TEST SCH ×4 (06:00→18:16)
[2020-08-08] MEDS: INSULIN LISPRO 100 UNITS/ML SUBCUT SCH ×4 (06:00→18:00)
[2020-08-08 06:02] LABS: CHLORIDE 108 mEq/L (98-107)
[2020-08-08 08:12] LABS: BG BASE EXCESS 0.7 mmol/L (-2.0-2.0); BG CARBOXYHEMOGLOBIN 0.1 % (0.5-1.5); BG DEOXYHEMOGLOBIN 1.8 % (0.0-5.0); BG FRACTION INSPIRED OXYGEN 35; BG HCO3 ACT 23.9 mmol/L (22.0-26.0); BG METHEMOGLOBIN 0.3 % (0.0-1.5); BG OXYGEN SATURATION 98.2 % (92.0-98.5); BG OXYHEMOGLOBIN 97.8 % (94.0-97.0); BG PEEP (cmH2O) 0 cmH2O; BG PH 7.492 (7.350-7.450); BG SAMPLE SITE RIGHT RADIAL; BG TOTAL HEMOGLOBIN 7.4 g/dL (12.0-18.0); BG VENT MODE VENT - SIMV
[2020-08-08] MEDS: LACTULOSE 20G/30ML UDC PO PRN (08:16)
[2020-08-08] MEDS: LOSARTAN POTASSIUM 50 MG TABLET PO SCH (08:16)
[2020-08-08] MEDS: PANTOPRAZOLE SODIUM 40 MG/VIAL IV SCH (08:16)
[2020-08-08] MEDS: AMLODIPINE 10MG TABLET PO SCH (08:17)
[2020-08-08] MEDS: LEVETIRACETAM 500MG PREMIX 100 ML IV SCH ×2 (08:17→20:48)
[2020-08-08 13:01] LABS: PLATELET ESTIMATE NORMAL
[2020-08-08] MEDS: VANCOMYCIN 1250MG in DEXTROSE 5% WATER 250ML IV SCH (13:49)
[2020-08-09] VITALS (66 sets, daily range): BP systolic 75–161; BP diastolic 43–79
[2020-08-09] MEDS: BLOOD SUGAR DIAGNOSTIC STRIP TEST SCH ×4 (00:43→17:55)
[2020-08-09] MEDS: METOCLOPRAMIDE HCL 10MG/2ML VIAL IV SCH ×3 (00:44→11:14)
[2020-08-09] MEDS: IPRATROPIUM BROMIDE (0.02%) 0.5MG/2.5ML NEB HHN SCH ×4 (00:56→20:38)
[2020-08-09] MEDS: INSULIN LISPRO 100 UNITS/ML SUBCUT SCH ×4 (05:43→17:54)
[2020-08-09 05:52] LABS: HEMATOCRIT. 22.3 % (42.0-52.0); HEMOGLOBIN. 7.4 g/dL (14.0-18.0); MEAN CORPUSCULAR HEMOGLOBIN 29.3 pg (28.0-32.0); MEAN CORPUSCULAR VOLUME 88.1 fL (80.0-94.0); MEAN PLATELET VOLUME 8.3 fl (7.4-10.4); PLATELET 309 x1000/uL (130-400); RED BLOOD CELL COUNT 2.53 mill/uL (4.7-6.1); RED CELL DISTRIBUTION WIDTH 13.7 % (11.6-14.6)
[2020-08-09 05:54] LABS: CHLORIDE 105 mEq/L (98-107)
[2020-08-09] MEDS: VANCOMYCIN 1250MG in DEXTROSE 5% WATER 250ML IV SCH (06:40)
[2020-08-09] MEDS ORDERED: POTASSIUM CHLORIDE 20MEQ/PACKET PO SCH (08:00)
[2020-08-09] MEDS: AMLODIPINE 10MG TABLET PO SCH (08:45)
[2020-08-09] MEDS: PANTOPRAZOLE SODIUM 40 MG/VIAL IV SCH (08:45)
[2020-08-09] MEDS: LEVETIRACETAM 500MG PREMIX 100 ML IV SCH ×2 (09:06→21:20)
[2020-08-09] MEDS: LOSARTAN POTASSIUM 50 MG TABLET PO SCH (10:00)
[2020-08-09 17:23] LABS: PLATELET ESTIMATE NORMAL
[2020-08-09] MEDS ORDERED: VANCOMYCIN 1500MG in DEXTROSE 5% WATER 250ML IV SCH (23:00)
[2020-08-10] VITALS (61 sets, daily range): BP systolic 91–146; BP diastolic 45–73
[2020-08-10] MEDS: IPRATROPIUM BROMIDE (0.02%) 0.5MG/2.5ML NEB HHN SCH ×3 (00:25→21:33)
[2020-08-10] MEDS: METOCLOPRAMIDE HCL 10MG/2ML VIAL IV SCH ×4 (01:35→17:49)
[2020-08-10] MEDS: VANCOMYCIN 1250MG in DEXTROSE 5% WATER 250ML IV SCH (01:37)
[2020-08-10 05:42] LABS: BASOPHILS % 0.4 % (0.0-2.0); LYMPHOCYTES % 9.9 % (20.0-50.0); MEAN CORPUSCULAR HEMOGLOBIN 28.5 pg (28.0-32.0); MEAN CORPUSCULAR VOLUME 88.1 fL (80.0-94.0); NEUTROPHILS % 84.7 % (40.0-76.0); PLATELET 270 x1000/uL (130-400); RED BLOOD CELL COUNT 2.29 mill/uL (4.7-6.1); RED CELL DISTRIBUTION WIDTH 13.8 % (11.6-14.6)
[2020-08-10 05:51] LABS: CHLORIDE 108 mEq/L (98-107)
[2020-08-10 05:59] LABS: HEMATOCRIT. 20.2 % (42.0-52.0); HEMOGLOBIN. 6.5 g/dL (14.0-18.0)
[2020-08-10] MEDS: INSULIN LISPRO 100 UNITS/ML SUBCUT SCH ×4 (06:00→17:49)
[2020-08-10] MEDS: BLOOD SUGAR DIAGNOSTIC STRIP TEST SCH ×4 (06:35→17:50)
[2020-08-10 07:53] LABS: BG DEOXYHEMOGLOBIN 0.8 % (0.0-5.0); BG FRACTION INSPIRED OXYGEN 35; BG HCO3 ACT 25.5 mmol/L (22.0-26.0); BG METHEMOGLOBIN 0.5 % (0.0-1.5); BG OXYGEN SATURATION 99.2 % (92.0-98.5); BG OXYHEMOGLOBIN 98.7 % (94.0-97.0); BG PCO2 29.9 mmHg (35.0-45.0); BG PEEP (cmH2O) 0 cmH2O; BG PH 7.549 (7.350-7.450); BG PO2 168.7 mmHg (75.0-100.0); BG SAMPLE SITE RIGHT RADIAL; BG TOTAL HEMOGLOBIN 6.9 g/dL (12.0-18.0); BG VENT MODE VENT - SIMV
[2020-08-10] MEDS: PANTOPRAZOLE SODIUM 40 MG/VIAL IV SCH (09:17)
[2020-08-10] MEDS: AMLODIPINE 10MG TABLET PO SCH (09:18)
[2020-08-10] MEDS: LOSARTAN POTASSIUM 50 MG TABLET PO SCH (09:18)
[2020-08-10] MEDS: LEVETIRACETAM 500MG PREMIX 100 ML IV SCH ×2 (09:24→20:59)
[2020-08-10 09:55] LABS: BASOPHILS % 0.5 % (0.0-2.0); LYMPHOCYTES % 8.3 % (20.0-50.0); MEAN CORPUSCULAR HEMOGLOBIN 29.4 pg (28.0-32.0); MEAN CORPUSCULAR VOLUME 88.1 fL (80.0-94.0); MEAN PLATELET VOLUME 8.1 fl (7.4-10.4); MONOCYTES % 4.6 % (2.0-8.0); NEUTROPHILS % 85.6 % (40.0-76.0); PLATELET 301 x1000/uL (130-400); RED BLOOD CELL COUNT 2.34 mill/uL (4.7-6.1); RED CELL DISTRIBUTION WIDTH 13.9 % (11.6-14.6)
[2020-08-10 09:57] LABS: HEMOGLOBIN. 6.9 g/dL (14.0-18.0)
[2020-08-10 09:58] LABS: HEMATOCRIT. 20.6 % (42.0-52.0)
[2020-08-10 10:10] LABS: INR 1.2; PROTHROMBIN TIME 12.6 sec (9.6-11.0)
[2020-08-10 10:30] LABS: FIBRINOGEN > 900 mg/dL (200-400)
[2020-08-10] MEDS ORDERED: POTASSIUM CHLORIDE 20MEQ/PACKET PO NR (10:30)
[2020-08-10] MEDS ORDERED: LEVOFLOXACIN 500MG PREMIX 100 ML IV SCH (11:00)
[2020-08-10] MEDS: LACTULOSE 20G/30ML UDC PO PRN (17:49)
[2020-08-10] MEDS: ACETAMINOPHEN 650MG/20.3ML UDC PO PRN (20:53)
[2020-08-11] VITALS (50 sets, daily range): BP systolic 92–162; BP diastolic 36–84
[2020-08-11] MEDS: METOCLOPRAMIDE HCL 10MG/2ML VIAL IV SCH ×4 (00:20→17:39)
[2020-08-11] MEDS: INSULIN LISPRO 100 UNITS/ML SUBCUT SCH ×4 (06:00→18:00)
[2020-08-11] MEDS: BLOOD SUGAR DIAGNOSTIC STRIP TEST SCH ×4 (06:24→17:40)
[2020-08-11 06:51] LABS: HEMATOCRIT. 26.2 % (42.0-52.0); HEMOGLOBIN. 8.6 g/dL (14.0-18.0); MEAN CORPUSCULAR HEMOGLOBIN 28.6 pg (28.0-32.0); MEAN CORPUSCULAR VOLUME 86.7 fL (80.0-94.0); MEAN PLATELET VOLUME 8.4 fl (7.4-10.4); PLATELET 235 x1000/uL (130-400); RED BLOOD CELL COUNT 3.02 mill/uL (4.7-6.1); RED CELL DISTRIBUTION WIDTH 14.1 % (11.6-14.6)
[2020-08-11 06:58] LABS: CHLORIDE 110 mEq/L (98-107)
[2020-08-11 07:05] LABS: TOTAL IRON BINDING CAPACITY 114 ug/dL (250-450)
[2020-08-11 08:04] LABS: BG CARBOXYHEMOGLOBIN 0.3 % (0.5-1.5); BG DEOXYHEMOGLOBIN 1.1 % (0.0-5.0); BG FRACTION INSPIRED OXYGEN 35; BG HCO3 ACT 25.3 mmol/L (22.0-26.0); BG METHEMOGLOBIN 0.3 % (0.0-1.5); BG OXYGEN SATURATION 98.9 % (92.0-98.5); BG OXYHEMOGLOBIN 98.3 % (94.0-97.0); BG PCO2 34.4 mmHg (35.0-45.0); BG PEEP (cmH2O) 0 cmH2O; BG PH 7.485 (7.350-7.450); BG PO2 161.1 mmHg (75.0-100.0); BG SAMPLE SITE RIGHT RADIAL; BG TOTAL HEMOGLOBIN 9.4 g/dL (12.0-18.0); BG VENT MODE VENT - SIMV
[2020-08-11] MEDS: IPRATROPIUM BROMIDE (0.02%) 0.5MG/2.5ML NEB HHN SCH ×2 (08:33→21:27)
[2020-08-11] MEDS: LEVETIRACETAM 500MG PREMIX 100 ML IV SCH ×2 (08:40→21:11)
[2020-08-11] MEDS: LOSARTAN POTASSIUM 50 MG TABLET PO SCH (08:40)
[2020-08-11] MEDS: PANTOPRAZOLE SODIUM 40 MG/VIAL IV SCH (08:41)
[2020-08-11] MEDS: AMLODIPINE 10MG TABLET PO SCH (08:41)
[2020-08-11 10:41] LABS: PLATELET ESTIMATE NORMAL
[2020-08-11] MEDS: LEVOFLOXACIN 250MG PREMIX 50 ML IV SCH (12:07)
[2020-08-12] VITALS (52 sets, daily range): BP systolic 92–154; BP diastolic 47–83
[2020-08-12] MEDS: BLOOD SUGAR DIAGNOSTIC STRIP TEST SCH ×4 (00:46→18:20)
[2020-08-12] MEDS: METOCLOPRAMIDE HCL 10MG/2ML VIAL IV SCH ×5 (00:47→23:46)
[2020-08-12] MEDS: ACETAMINOPHEN 650MG/20.3ML UDC PO PRN (01:18)
[2020-08-12] MEDS: CLONIDINE 0.1MG TABLET PO PRN ×2 (01:18→23:24)
[2020-08-12] MEDS: INSULIN LISPRO 100 UNITS/ML SUBCUT SCH ×4 (06:00→18:00)
[2020-08-12 06:38] LABS: BASOPHILS % 0.4 % (0.0-2.0); EOSINOPHILS % 0.7 % (0.0-5.0); HEMATOCRIT. 25.9 % (42.0-52.0); HEMOGLOBIN. 8.5 g/dL (14.0-18.0); LYMPHOCYTES % 8.3 % (20.0-50.0); MEAN CORPUSCULAR HEMOGLOBIN 28.4 pg (28.0-32.0); MEAN CORPUSCULAR VOLUME 86.3 fL (80.0-94.0); MEAN PLATELET VOLUME 8.3 fl (7.4-10.4); MONOCYTES % 6.3 % (2.0-8.0); NEUTROPHILS % 84.3 % (40.0-76.0); PLATELET 265 x1000/uL (130-400); RED CELL DISTRIBUTION WIDTH 14.5 % (11.6-14.6)
[2020-08-12 06:41] LABS: CHLORIDE 108 mEq/L (98-107)
[2020-08-12] MEDS: LEVETIRACETAM 500MG PREMIX 100 ML IV SCH ×2 (08:38→20:24)
[2020-08-12] MEDS: LOSARTAN POTASSIUM 50 MG TABLET PO SCH (08:38)
[2020-08-12] MEDS: PANTOPRAZOLE SODIUM 40 MG/VIAL IV SCH (08:38)
[2020-08-12] MEDS: AMLODIPINE 10MG TABLET PO SCH (08:38)
[2020-08-12] MEDS: IPRATROPIUM BROMIDE (0.02%) 0.5MG/2.5ML NEB HHN SCH (08:51)
[2020-08-12] MEDS: LEVOFLOXACIN 250MG PREMIX 50 ML IV SCH (11:59)
[2020-08-13] VITALS (56 sets, daily range): BP systolic 102–142; BP diastolic 56–81
[2020-08-13] MEDS: IPRATROPIUM BROMIDE (0.02%) 0.5MG/2.5ML NEB HHN SCH ×2 (00:28→08:23)
[2020-08-13] MEDS: METOCLOPRAMIDE HCL 10MG/2ML VIAL IV SCH ×4 (05:47→23:32)
[2020-08-13] MEDS: BLOOD SUGAR DIAGNOSTIC STRIP TEST SCH ×5 (05:47→23:09)
[2020-08-13] MEDS: INSULIN LISPRO 100 UNITS/ML SUBCUT SCH ×5 (05:47→23:09)
[2020-08-13 06:50] LABS: BASOPHILS % 0.4 % (0.0-2.0); EOSINOPHILS % 0.9 % (0.0-5.0); HEMATOCRIT. 29.8 % (42.0-52.0); HEMOGLOBIN. 9.9 g/dL (14.0-18.0); LYMPHOCYTES % 9.4 % (20.0-50.0); MEAN CORPUSCULAR HEMOGLOBIN 28.5 pg (28.0-32.0); MEAN CORPUSCULAR VOLUME 86.1 fL (80.0-94.0); MONOCYTES % 7.5 % (2.0-8.0); NEUTROPHILS % 81.8 % (40.0-76.0); PLATELET 316 x1000/uL (130-400); RED BLOOD CELL COUNT 3.46 mill/uL (4.7-6.1); RED CELL DISTRIBUTION WIDTH 14.3 % (11.6-14.6)
[2020-08-13 07:02] LABS: CHLORIDE 108 mEq/L (98-107)
[2020-08-13] MEDS: PANTOPRAZOLE SODIUM 40 MG/VIAL IV SCH (10:07)
[2020-08-13] MEDS: LOSARTAN POTASSIUM 50 MG TABLET PO SCH (10:07)
[2020-08-13] MEDS: LEVETIRACETAM 500MG PREMIX 100 ML IV SCH ×2 (10:08→20:17)
[2020-08-13] MEDS: AMLODIPINE 10MG TABLET PO SCH (10:08)
[2020-08-13 10:30] LABS: BG BASE EXCESS -0.1 mmol/L (-2.0-2.0); BG CARBOXYHEMOGLOBIN 0.3 % (0.5-1.5); BG DEOXYHEMOGLOBIN 1.6 % (0.0-5.0); BG FRACTION INSPIRED OXYGEN 30; BG HCO3 ACT 22.6 mmol/L (22.0-26.0); BG METHEMOGLOBIN 0.3 % (0.0-1.5); BG OXYGEN SATURATION 98.4 % (92.0-98.5); BG OXYHEMOGLOBIN 97.8 % (94.0-97.0); BG PCO2 30.2 mmHg (35.0-45.0); BG PH 7.492 (7.350-7.450); BG PO2 124.3 mmHg (75.0-100.0); BG SAMPLE SITE RIGHT RADIAL; BG TOTAL HEMOGLOBIN 10.3 g/dL (12.0-18.0); BG TOTAL RESPIRATORY RATE 20 b/min; BG VENT MODE VENT - SIMV
[2020-08-13] MEDS: LEVOFLOXACIN 250MG PREMIX 50 ML IV SCH (11:00)
[2020-08-14] VITALS (80 sets, daily range): BP systolic 113–178; BP diastolic 58–83
[2020-08-14] MEDS: IPRATROPIUM BROMIDE (0.02%) 0.5MG/2.5ML NEB HHN SCH ×3 (00:16→20:24)
[2020-08-14] MEDS: BLOOD SUGAR DIAGNOSTIC STRIP TEST SCH ×4 (05:43→23:14)
[2020-08-14] MEDS: METOCLOPRAMIDE HCL 10MG/2ML VIAL IV SCH ×4 (05:43→23:43)
[2020-08-14] MEDS: INSULIN LISPRO 100 UNITS/ML SUBCUT SCH ×4 (05:43→23:14)
[2020-08-14 06:28] LABS: BASOPHILS % 0.4 % (0.0-2.0); EOSINOPHILS % 1.8 % (0.0-5.0); HEMATOCRIT. 31.5 % (42.0-52.0); HEMOGLOBIN. 10.2 g/dL (14.0-18.0); LYMPHOCYTES % 8.9 % (20.0-50.0); MEAN CORPUSCULAR HEMOGLOBIN 27.8 pg (28.0-32.0); MEAN PLATELET VOLUME 8.2 fl (7.4-10.4); MONOCYTES % 7.8 % (2.0-8.0); NEUTROPHILS % 81.1 % (40.0-76.0); PLATELET 369 x1000/uL (130-400); RED BLOOD CELL COUNT 3.67 mill/uL (4.7-6.1); RED CELL DISTRIBUTION WIDTH 14.8 % (11.6-14.6)
[2020-08-14 06:53] LABS: CHLORIDE 107 mEq/L (98-107)
[2020-08-14] MEDS: LEVETIRACETAM 500MG PREMIX 100 ML IV SCH ×2 (09:10→20:53)
[2020-08-14 09:41] LABS: BG BASE EXCESS 0.2 mmol/L (-2.0-2.0); BG CARBOXYHEMOGLOBIN 0.3 % (0.5-1.5); BG DEOXYHEMOGLOBIN 1.5 % (0.0-5.0); BG FRACTION INSPIRED OXYGEN 30; BG HCO3 ACT 23.5 mmol/L (22.0-26.0); BG METHEMOGLOBIN 0.2 % (0.0-1.5); BG OXYGEN SATURATION 98.5 % (92.0-98.5); BG PCO2 33.3 mmHg (35.0-45.0); BG PH 7.466 (7.350-7.450); BG PO2 126.7 mmHg (75.0-100.0); BG SAMPLE SITE RIGHT RADIAL; BG TOTAL HEMOGLOBIN 10.6 g/dL (12.0-18.0); BG VENT MODE VENT - SIMV
[2020-08-14] MEDS: PANTOPRAZOLE SODIUM 40 MG/VIAL IV SCH (09:42)
[2020-08-14] MEDS: LOSARTAN POTASSIUM 50 MG TABLET PO SCH (09:42)
[2020-08-14] MEDS: AMLODIPINE 10MG TABLET PO SCH (09:43)
[2020-08-14] MEDS: SODIUM CHLORIDE 0.9% 1,000 ML IV SCH (11:56)
[2020-08-14] MEDS: LEVOFLOXACIN 250MG PREMIX 50 ML IV SCH (11:57)
[2020-08-14] MEDS: CLONIDINE 0.1MG TABLET PO PRN (18:27)
[2020-08-14] MEDS: METOPROLOL TARTRATE 50MG TABLET PO SCH (20:54)
[2020-08-15] VITALS (41 sets, daily range): BP systolic 95–157; BP diastolic 53–79
[2020-08-15] MEDS: BLOOD SUGAR DIAGNOSTIC STRIP TEST SCH (05:35)
[2020-08-15] MEDS: INSULIN LISPRO 100 UNITS/ML SUBCUT SCH (05:35)
[2020-08-15] MEDS: METOCLOPRAMIDE HCL 10MG/2ML VIAL IV SCH ×4 (05:48→23:31)
[2020-08-15] MEDS: SODIUM CHLORIDE 0.9% 1,000 ML IV SCH (05:48)
[2020-08-15 06:09] LABS: BASOPHILS % 0.3 % (0.0-2.0); EOSINOPHILS % 1.2 % (0.0-5.0); HEMATOCRIT. 30.8 % (42.0-52.0); LYMPHOCYTES % 8.3 % (20.0-50.0); MEAN CORPUSCULAR VOLUME 86.4 fL (80.0-94.0); MEAN PLATELET VOLUME 8.2 fl (7.4-10.4); MONOCYTES % 8.1 % (2.0-8.0); NEUTROPHILS % 82.1 % (40.0-76.0); PLATELET 392 x1000/uL (130-400); RED BLOOD CELL COUNT 3.57 mill/uL (4.7-6.1); RED CELL DISTRIBUTION WIDTH 14.9 % (11.6-14.6)
[2020-08-15 06:13] LABS: CHLORIDE 109 mEq/L (98-107)
[2020-08-15] MEDS: METOPROLOL TARTRATE 50MG TABLET PO SCH ×2 (08:37→21:30)
[2020-08-15] MEDS: LOSARTAN POTASSIUM 50 MG TABLET PO SCH (08:37)
[2020-08-15] MEDS: PANTOPRAZOLE SODIUM 40 MG/VIAL IV SCH (08:37)
[2020-08-15] MEDS: AMLODIPINE 10MG TABLET PO SCH (08:37)
[2020-08-15] MEDS: LEVETIRACETAM 500MG PREMIX 100 ML IV SCH ×2 (08:38→21:29)
[2020-08-15] MEDS: IPRATROPIUM BROMIDE (0.02%) 0.5MG/2.5ML NEB HHN SCH ×2 (08:40→20:29)
[2020-08-15] MEDS: LEVOFLOXACIN 250MG PREMIX 50 ML IV SCH (11:17)
[2020-08-15 22:04] LABS: INR 1.3; PARTIAL THROMBOPLASTIN TIME 34.9 sec (23.4-31.0); PROTHROMBIN TIME 13.3 sec (9.6-11.0)
[2020-08-16] VITALS (40 sets, daily range): BP systolic 110–152; BP diastolic 47–90
[2020-08-16] MEDS: METOCLOPRAMIDE HCL 10MG/2ML VIAL IV SCH ×4 (05:26→23:04)
[2020-08-16 06:50] LABS: BASOPHILS % 0.6 % (0.0-2.0); EOSINOPHILS % 2.4 % (0.0-5.0); HEMATOCRIT. 31.2 % (42.0-52.0); HEMOGLOBIN. 9.9 g/dL (14.0-18.0); LYMPHOCYTES % 9.6 % (20.0-50.0); MEAN CORPUSCULAR HEMOGLOBIN 27.4 pg (28.0-32.0); MEAN CORPUSCULAR VOLUME 86.2 fL (80.0-94.0); MEAN PLATELET VOLUME 8.5 fl (7.4-10.4); MONOCYTES % 8.2 % (2.0-8.0); NEUTROPHILS % 79.2 % (40.0-76.0); PLATELET 411 x1000/uL (130-400); RED BLOOD CELL COUNT 3.62 mill/uL (4.7-6.1)
[2020-08-16 06:51] LABS: CHLORIDE 107 mEq/L (98-107)
[2020-08-16] MEDS: IPRATROPIUM BROMIDE (0.02%) 0.5MG/2.5ML NEB HHN SCH ×2 (08:17→21:00)
[2020-08-16] MEDS: PANTOPRAZOLE SODIUM 40 MG/VIAL IV SCH ×2 (09:30→20:20)
[2020-08-16] MEDS: METOPROLOL TARTRATE 50MG TABLET PO SCH ×2 (09:30→20:20)
[2020-08-16] MEDS: AMLODIPINE 10MG TABLET PO SCH (09:30)
[2020-08-16] MEDS: LEVETIRACETAM 500MG PREMIX 100 ML IV SCH ×2 (09:30→20:20)
[2020-08-16] MEDS: LOSARTAN POTASSIUM 50 MG TABLET PO SCH (09:30)
[2020-08-16] MEDS: LEVOFLOXACIN 250MG PREMIX 50 ML IV SCH (12:28)
[2020-08-17] VITALS (67 sets, daily range): BP systolic 101–159; BP diastolic 54–87
[2020-08-17] MEDS: METOCLOPRAMIDE HCL 10MG/2ML VIAL IV SCH ×3 (05:02→18:00)
[2020-08-17 05:42] LABS: CHLORIDE 108 mEq/L (98-107)
[2020-08-17 05:51] LABS: INR 1.2; PARTIAL THROMBOPLASTIN TIME 23.9 sec (23.4-31.0)
[2020-08-17 05:55] LABS: BASOPHILS % 0.6 % (0.0-2.0); EOSINOPHILS % 1.1 % (0.0-5.0); HEMATOCRIT. 30.9 % (42.0-52.0); HEMOGLOBIN. 9.9 g/dL (14.0-18.0); LYMPHOCYTES % 7.8 % (20.0-50.0); MEAN CORPUSCULAR HEMOGLOBIN 27.7 pg (28.0-32.0); MEAN PLATELET VOLUME 8.6 fl (7.4-10.4); MONOCYTES % 5.9 % (2.0-8.0); NEUTROPHILS % 84.6 % (40.0-76.0); PLATELET 484 x1000/uL (130-400); RED BLOOD CELL COUNT 3.59 mill/uL (4.7-6.1); RED CELL DISTRIBUTION WIDTH 14.8 % (11.6-14.6)
[2020-08-17] MEDS: IPRATROPIUM BROMIDE (0.02%) 0.5MG/2.5ML NEB HHN SCH ×2 (08:33→20:45)
[2020-08-17] MEDS: METOPROLOL TARTRATE 50MG TABLET PO SCH ×2 (09:00→20:47)
[2020-08-17] MEDS: LOSARTAN POTASSIUM 50 MG TABLET PO SCH (09:00)
[2020-08-17] MEDS: AMLODIPINE 10MG TABLET PO SCH (09:00)
[2020-08-17] MEDS: LEVETIRACETAM 500MG PREMIX 100 ML IV SCH ×2 (09:34→20:48)
[2020-08-17] MEDS: PANTOPRAZOLE SODIUM 40 MG/VIAL IV SCH ×2 (09:34→20:47)
[2020-08-17] MEDS ORDERED: LEVOFLOXACIN 250MG PREMIX 50 ML IV SCH (11:00)
[2020-08-17] MEDS ORDERED: MIDAZOLAM HCL 5 MG/5 ML VIAL ONE (11:23)
[2020-08-17] MEDS ORDERED: FENTANYL CITRATE/PF 50MCG/ML 2ML VIAL ONE (11:23)
[2020-08-17] MEDS ORDERED: MIDAZOLAM HCL 2 MG/2 ML VIAL IV PRN (11:37)
[2020-08-17] MEDS ORDERED: MIDAZOLAM HCL 2 MG/2 ML VIAL ONE (16:16)
[2020-08-17] MEDS ORDERED: ROCURONIUM BROMIDE 10MG/ML VIAL 5ML IV ONE ×2 (16:16→16:34)
[2020-08-17] MEDS: CEFEPIME 1,000 MG in DEXTROSE 5% WATER 50 ML IV SCH (20:47)
[2020-08-18] VITALS (61 sets, daily range): BP systolic 123–167; BP diastolic 61–88
[2020-08-18] MEDS: METOCLOPRAMIDE HCL 10MG/2ML VIAL IV SCH ×5 (00:30→23:49)
[2020-08-18] MEDS: CEFEPIME 1,000 MG in DEXTROSE 5% WATER 50 ML IV SCH ×2 (05:45→18:28)
[2020-08-18 06:37] LABS: CHLORIDE 108 mEq/L (98-107)
[2020-08-18 06:40] LABS: HEMATOCRIT. 31.8 % (42.0-52.0); HEMOGLOBIN. 10.3 g/dL (14.0-18.0); MEAN CORPUSCULAR HEMOGLOBIN 28.2 pg (28.0-32.0); MEAN CORPUSCULAR VOLUME 86.5 fL (80.0-94.0); MEAN PLATELET VOLUME 8.2 fl (7.4-10.4); PLATELET 462 x1000/uL (130-400); RED BLOOD CELL COUNT 3.67 mill/uL (4.7-6.1); RED CELL DISTRIBUTION WIDTH 14.9 % (11.6-14.6)
[2020-08-18 08:33] LABS: BG BASE EXCESS 0.4 mmol/L (-2.0-2.0); BG CARBOXYHEMOGLOBIN 0.3 % (0.5-1.5); BG DEOXYHEMOGLOBIN 2.1 % (0.0-5.0); BG FRACTION INSPIRED OXYGEN 30; BG HCO3 ACT 23.8 mmol/L (22.0-26.0); BG METHEMOGLOBIN 0.2 % (0.0-1.5); BG OXYGEN SATURATION 97.9 % (92.0-98.5); BG OXYHEMOGLOBIN 97.4 % (94.0-97.0); BG PCO2 33.7 mmHg (35.0-45.0); BG PH 7.466 (7.350-7.450); BG SAMPLE SITE RIGHT BRACHIAL; BG TOTAL HEMOGLOBIN 10.1 g/dL (12.0-18.0); BG TOTAL RESPIRATORY RATE 18 b/min; BG VENT MODE VENT - SIMV
[2020-08-18] MEDS: PANTOPRAZOLE SODIUM 40 MG/VIAL IV SCH ×2 (09:10→20:45)
[2020-08-18] MEDS: LEVETIRACETAM 500MG PREMIX 100 ML IV SCH ×2 (09:10→20:45)
[2020-08-18] MEDS: AMLODIPINE 10MG TABLET PO SCH (09:10)
[2020-08-18] MEDS: METOPROLOL TARTRATE 50MG TABLET PO SCH ×2 (09:10→20:45)
[2020-08-18] MEDS: LOSARTAN POTASSIUM 50 MG TABLET PO SCH (09:10)
[2020-08-18 10:40] LABS: PLATELET ESTIMATE SLIGHTLY INCREASED
[2020-08-18] MEDS: IPRATROPIUM BROMIDE (0.02%) 0.5MG/2.5ML NEB HHN SCH (20:03)
[2020-08-18] MEDS: CLONIDINE 0.1MG TABLET PO PRN (22:10)
[2020-08-19] VITALS (40 sets, daily range): BP systolic 115–150; BP diastolic 57–81
[2020-08-19] MEDS: METOCLOPRAMIDE HCL 10MG/2ML VIAL IV SCH ×4 (05:05→23:57)
[2020-08-19] MEDS: CEFEPIME 1,000 MG in DEXTROSE 5% WATER 50 ML IV SCH ×2 (05:05→17:15)
[2020-08-19 06:33] LABS: CHLORIDE 106 mEq/L (98-107)
[2020-08-19 06:48] LABS: BASOPHILS % 0.2 % (0.0-2.0); HEMATOCRIT. 33.7 % (42.0-52.0); LYMPHOCYTES % 7.8 % (20.0-50.0); MEAN CORPUSCULAR HEMOGLOBIN 27.8 pg (28.0-32.0); MEAN CORPUSCULAR VOLUME 85.4 fL (80.0-94.0); MEAN PLATELET VOLUME 8.2 fl (7.4-10.4); MONOCYTES % 5.6 % (2.0-8.0); NEUTROPHILS % 85.4 % (40.0-76.0); PLATELET 469 x1000/uL (130-400); RED BLOOD CELL COUNT 3.95 mill/uL (4.7-6.1); RED CELL DISTRIBUTION WIDTH 15.2 % (11.6-14.6)
[2020-08-19] MEDS: LEVETIRACETAM 500MG PREMIX 100 ML IV SCH ×2 (08:20→20:23)
[2020-08-19] MEDS: PANTOPRAZOLE SODIUM 40 MG/VIAL IV SCH ×2 (08:20→20:23)
[2020-08-19] MEDS: METOPROLOL TARTRATE 50MG TABLET PO SCH ×2 (08:20→20:24)
[2020-08-19] MEDS: IPRATROPIUM BROMIDE (0.02%) 0.5MG/2.5ML NEB HHN SCH ×2 (08:57→20:49)
[2020-08-19] MEDS: AMLODIPINE 10MG TABLET PO SCH (09:01)
[2020-08-19] MEDS: LOSARTAN POTASSIUM 50 MG TABLET PO SCH (09:46)
[2020-08-19 10:31] LABS: BG BASE EXCESS 0.3 mmol/L (-2.0-2.0); BG CARBOXYHEMOGLOBIN 0.6 % (0.5-1.5); BG DEOXYHEMOGLOBIN 1.1 % (0.0-5.0); BG FRACTION INSPIRED OXYGEN 30; BG HCO3 ACT 23.5 mmol/L (22.0-26.0); BG METHEMOGLOBIN 0.3 % (0.0-1.5); BG OXYGEN SATURATION 98.9 % (92.0-98.5); BG PCO2 33.1 mmHg (35.0-45.0); BG PH 7.469 (7.350-7.450); BG PO2 137.7 mmHg (75.0-100.0); BG SAMPLE SITE RIGHT RADIAL; BG TOTAL HEMOGLOBIN 11.2 g/dL (12.0-18.0); BG TOTAL RESPIRATORY RATE 27 b/min; BG VENT MODE VENT - SIMV
[2020-08-19] MEDS ORDERED: POTASSIUM CHLORIDE 20MEQ/PACKET PEG NR (11:00)
[2020-08-20] VITALS (11 sets, daily range): BP systolic 99–117; BP diastolic 49–58
[2020-08-20] MEDS: CEFEPIME 1,000 MG in DEXTROSE 5% WATER 50 ML IV SCH ×2 (05:34→16:58)
[2020-08-20] MEDS: METOCLOPRAMIDE HCL 10MG/2ML VIAL IV SCH ×3 (05:34→17:14)
[2020-08-20 07:14] LABS: BASOPHILS % 0.3 % (0.0-2.0); EOSINOPHILS % 1.6 % (0.0-5.0); HEMATOCRIT. 29.3 % (42.0-52.0); HEMOGLOBIN. 9.6 g/dL (14.0-18.0); LYMPHOCYTES % 9.6 % (20.0-50.0); MEAN CORPUSCULAR HEMOGLOBIN 27.8 pg (28.0-32.0); MEAN CORPUSCULAR VOLUME 84.9 fL (80.0-94.0); MONOCYTES % 5.6 % (2.0-8.0); NEUTROPHILS % 82.9 % (40.0-76.0); PLATELET 379 x1000/uL (130-400); RED BLOOD CELL COUNT 3.45 mill/uL (4.7-6.1); RED CELL DISTRIBUTION WIDTH 15.2 % (11.6-14.6)
[2020-08-20 07:25] LABS: CHLORIDE 107 mEq/L (98-107)
[2020-08-20] MEDS: IPRATROPIUM BROMIDE (0.02%) 0.5MG/2.5ML NEB HHN SCH ×2 (08:04→20:27)
[2020-08-20] MEDS: LEVETIRACETAM 500MG PREMIX 100 ML IV SCH (08:30)
[2020-08-20] MEDS: LOSARTAN POTASSIUM 50 MG TABLET PO SCH (08:31)
[2020-08-20] MEDS: PANTOPRAZOLE SODIUM 40 MG/VIAL IV SCH ×2 (08:31→20:52)
[2020-08-20] MEDS: AMLODIPINE 10MG TABLET PO SCH (08:32)
[2020-08-20] MEDS: METOPROLOL TARTRATE 50MG TABLET PO SCH ×2 (08:32→20:53)
[2020-08-20] MEDS ORDERED: POTASSIUM CHLORIDE 20MEQ TABLET SR PO NR (16:20)
[2020-08-21] VITALS (12 sets, daily range): BP systolic 99–114; BP diastolic 46–58
[2020-08-21] MEDS: METOCLOPRAMIDE HCL 10MG/2ML VIAL IV SCH ×4 (00:16→17:19)
[2020-08-21 06:42] LABS: BASOPHILS % 0.4 % (0.0-2.0); EOSINOPHILS % 1.5 % (0.0-5.0); HEMATOCRIT. 29.3 % (42.0-52.0); HEMOGLOBIN. 9.3 g/dL (14.0-18.0); MEAN CORPUSCULAR HEMOGLOBIN 27.1 pg (28.0-32.0); MEAN CORPUSCULAR VOLUME 85.9 fL (80.0-94.0); MEAN PLATELET VOLUME 8.1 fl (7.4-10.4); MONOCYTES % 5.3 % (2.0-8.0); NEUTROPHILS % 82.8 % (40.0-76.0); PLATELET 341 x1000/uL (130-400); RED BLOOD CELL COUNT 3.41 mill/uL (4.7-6.1); RED CELL DISTRIBUTION WIDTH 15.3 % (11.6-14.6)
[2020-08-21 07:20] LABS: CHLORIDE 109 mEq/L (98-107)
[2020-08-21] MEDS: PANTOPRAZOLE SODIUM 40 MG/VIAL IV SCH ×2 (08:53→20:57)
[2020-08-21] MEDS: METOPROLOL TARTRATE 50MG TABLET PO SCH ×3 (08:56→20:57)
[2020-08-21] MEDS: LOSARTAN POTASSIUM 50 MG TABLET PO SCH (09:00)
[2020-08-21] MEDS: AMLODIPINE 10MG TABLET PO SCH (09:00)
[2020-08-21] MEDS: IPRATROPIUM BROMIDE (0.02%) 0.5MG/2.5ML NEB HHN SCH ×2 (09:30→20:33)
[2020-08-21] MEDS: CEFEPIME 1,000 MG in DEXTROSE 5% WATER 50 ML IV SCH ×2 (11:12→17:19)
[2020-08-22] VITALS (12 sets, daily range): BP systolic 104–120; BP diastolic 53–62
[2020-08-22] MEDS: METOCLOPRAMIDE HCL 10MG/2ML VIAL IV SCH ×4 (00:39→18:52)
[2020-08-22] MEDS: CEFEPIME 1,000 MG in DEXTROSE 5% WATER 50 ML IV SCH ×2 (05:54→18:52)
[2020-08-22 06:49] LABS: BASOPHILS % 0.4 % (0.0-2.0); EOSINOPHILS % 0.9 % (0.0-5.0); HEMATOCRIT. 28.5 % (42.0-52.0); HEMOGLOBIN. 9.2 g/dL (14.0-18.0); LYMPHOCYTES % 13.6 % (20.0-50.0); MEAN CORPUSCULAR HEMOGLOBIN 27.7 pg (28.0-32.0); MEAN CORPUSCULAR VOLUME 85.6 fL (80.0-94.0); MEAN PLATELET VOLUME 8.3 fl (7.4-10.4); MONOCYTES % 4.7 % (2.0-8.0); NEUTROPHILS % 80.4 % (40.0-76.0); PLATELET 324 x1000/uL (130-400); RED BLOOD CELL COUNT 3.34 mill/uL (4.7-6.1); RED CELL DISTRIBUTION WIDTH 15.3 % (11.6-14.6)
[2020-08-22 07:25] LABS: CHLORIDE 107 mEq/L (98-107)
[2020-08-22] MEDS: IPRATROPIUM BROMIDE (0.02%) 0.5MG/2.5ML NEB HHN SCH ×2 (09:07→22:10)
[2020-08-22] MEDS: AMLODIPINE 10MG TABLET PO SCH (09:25)
[2020-08-22] MEDS: PANTOPRAZOLE SODIUM 40 MG/VIAL IV SCH (09:26)
[2020-08-22] MEDS: LOSARTAN POTASSIUM 50 MG TABLET PO SCH (09:26)
[2020-08-22] MEDS: METOPROLOL TARTRATE 50MG TABLET PO SCH ×2 (09:26→21:00)
[2020-08-22] MEDS: DOCUSATE SODIUM SUGAR FREE 100MG/10ML UDC NG SCH (14:19)
[2020-08-23] VITALS (12 sets, daily range): BP systolic 98–124; BP diastolic 53–94
[2020-08-23] MEDS: METOCLOPRAMIDE HCL 10MG/2ML VIAL IV SCH ×5 (00:53→21:40)
[2020-08-23 05:34] LABS: CHLORIDE 107 mEq/L (98-107)
[2020-08-23 06:21] LABS: BASOPHILS % 0.4 % (0.0-2.0); EOSINOPHILS % 0.8 % (0.0-5.0); HEMATOCRIT. 27.8 % (42.0-52.0); LYMPHOCYTES % 12.1 % (20.0-50.0); MEAN CORPUSCULAR HEMOGLOBIN 27.6 pg (28.0-32.0); MEAN PLATELET VOLUME 8.5 fl (7.4-10.4); MONOCYTES % 5.5 % (2.0-8.0); NEUTROPHILS % 81.2 % (40.0-76.0); PLATELET 312 x1000/uL (130-400); RED BLOOD CELL COUNT 3.27 mill/uL (4.7-6.1); RED CELL DISTRIBUTION WIDTH 15.3 % (11.6-14.6)
[2020-08-23] MEDS: IPRATROPIUM BROMIDE (0.02%) 0.5MG/2.5ML NEB HHN SCH ×2 (08:02→20:41)
[2020-08-23] MEDS: LOSARTAN POTASSIUM 50 MG TABLET PO SCH (09:05)
[2020-08-23] MEDS: DOCUSATE SODIUM SUGAR FREE 100MG/10ML UDC NG SCH (09:05)
[2020-08-23] MEDS: PANTOPRAZOLE SODIUM 40 MG/VIAL IV SCH (09:05)
[2020-08-23] MEDS: AMLODIPINE 10MG TABLET PO SCH (09:06)
[2020-08-23] MEDS: METOPROLOL TARTRATE 50MG TABLET PO SCH ×2 (09:06→21:00)
[2020-08-24] VITALS (10 sets, daily range): BP systolic 99–125; BP diastolic 56–69
[2020-08-24] MEDS: METOCLOPRAMIDE HCL 10MG/2ML VIAL IV SCH ×2 (05:53→12:15)
[2020-08-24 08:53] LABS: BG BASE EXCESS 1.7 mmol/L (-2.0-2.0); BG CARBOXYHEMOGLOBIN 0.8 % (0.5-1.5); BG DEOXYHEMOGLOBIN 1.9 % (0.0-5.0); BG FRACTION INSPIRED OXYGEN 30; BG HCO3 ACT 23.9 mmol/L (22.0-26.0); BG METHEMOGLOBIN 0.3 % (0.0-1.5); BG OXYGEN SATURATION 98.1 % (92.0-98.5); BG PH 7.534 (7.350-7.450); BG PO2 94.4 mmHg (75.0-100.0); BG SAMPLE SITE RIGHT RADIAL; BG TOTAL HEMOGLOBIN 9.6 g/dL (12.0-18.0); BG VENT MODE VENT - SIMV
[2020-08-24] MEDS: PANTOPRAZOLE SODIUM 40 MG/VIAL IV SCH (09:26)
[2020-08-24] MEDS: DOCUSATE SODIUM SUGAR FREE 100MG/10ML UDC NG SCH (09:26)
[2020-08-24] MEDS: METOPROLOL TARTRATE 50MG TABLET PO SCH (09:27)
[2020-08-24] MEDS: LOSARTAN POTASSIUM 50 MG TABLET PO SCH (09:27)
[2020-08-24] MEDS: AMLODIPINE 10MG TABLET PO SCH (09:27)
== END 2020-08-24 17:25 | DRG 3 ==
LOC: ER 15:38 → MICUSO 21:08 → 3WST 08-01 13:00 → CVICU 08-01 21:35 → 5EST 08-19 11:40
PROVIDERS: ADMIT Internal Medicine; ATTEND Internal Medicine
PROC: 5A1955Z Respiratory Ventilation, Greater than 96 Consecutive Hours (ICD-10-PCS; 2020-07-22)
PROC: 4A107BD Monitoring of Intracranial Pressure, Via Natural or Artificial Opening (ICD-10-PCS; 2020-07-22)
PROC: 00U207Z Supplement Dura Mater with Autologous Tissue Substitute, Open Approach (ICD-10-PCS; 2020-07-22)
PROC: 0NR00JZ Replacement of Skull with Synthetic Substitute, Open Approach (ICD-10-PCS; 2020-07-22)
PROC: 0BH17EZ Insertion of Endotracheal Airway into Trachea, Via Natural or Artificial Opening (ICD-10-PCS; 2020-07-22)
PROC: 0W9930Z Drainage of Right Pleural Cavity with Drainage Device, Percutaneous Approach (ICD-10-PCS; 2020-07-23)
PROC: 0NR00JZ Replacement of Skull with Synthetic Substitute, Open Approach (ICD-10-PCS; 2020-07-24)
PROC: 009600Z Drainage of Cerebral Ventricle with Drainage Device, Open Approach (ICD-10-PCS; 2020-07-25)
PROC: 00C40ZZ Extirpation of Matter from Intracranial Subdural Space, Open Approach (ICD-10-PCS; principal; 2020-07-26)
PROC: 00U207Z Supplement Dura Mater with Autologous Tissue Substitute, Open Approach (ICD-10-PCS; 2020-07-26)
PROC: 0NR00JZ Replacement of Skull with Synthetic Substitute, Open Approach (ICD-10-PCS; 2020-07-26)
PROC: 30233N1 Transfusion of Nonautologous Red Blood Cells into Peripheral Vein, Percutaneous Approach (ICD-10-PCS; 2020-07-26)
PROC: 05HY33Z Insertion of Infusion Device into Upper Vein, Percutaneous Approach (ICD-10-PCS; 2020-07-27)
PROC: B54MZZA Ultrasonography of Right Upper Extremity Veins, Guidance (ICD-10-PCS; 2020-07-27)
PROC: 0B110F4 Bypass Trachea to Cutaneous with Tracheostomy Device, Open Approach (ICD-10-PCS; 2020-08-17)
PROC: 0GBJ0ZZ Excision of Thyroid Gland Isthmus, Open Approach (ICD-10-PCS; 2020-08-17)
PROC: 0DH63UZ Insertion of Feeding Device into Stomach, Percutaneous Approach (ICD-10-PCS; 2020-08-17)
DX: S06.5X9A Traumatic subdural hemorrhage with loss of consciousness of unspecified duration, initial encounter (principal); N17.0 Acute kidney failure with tubular necrosis; E43 Unspecified severe protein-calorie malnutrition; J96.00 Acute respiratory failure, unspecified whether with hypoxia or hypercapnia; E87.2 Acidosis; G93.40 Encephalopathy, unspecified; S22.22XA Fracture of body of sternum, initial encounter for closed fracture; S22.43XA Multiple fractures of ribs, bilateral, initial encounter for closed fracture; T79.7XXA Traumatic subcutaneous emphysema, initial encounter; G91.9 Hydrocephalus, unspecified; E87.0 Hyperosmolality and hypernatremia; Z99.11 Dependence on respirator [ventilator] status; S27.0XXA Traumatic pneumothorax, initial encounter; T76.91XA Unspecified adult maltreatment, suspected, initial encounter; S05.12XA Contusion of eyeball and orbital tissues, left eye, initial encounter; D64.9 Anemia, unspecified; F03.90 Unspecified dementia, unspecified severity, without behavioral disturbance, psychotic disturbance, mood disturbance, and anxiety; E11.65 Type 2 diabetes mellitus with hyperglycemia; Z20.822 Contact with and (suspected) exposure to COVID-19; T38.0X5A Adverse effect of glucocorticoids and synthetic analogues, initial encounter; S60.511A Abrasion of right hand, initial encounter; R13.12 Dysphagia, oropharyngeal phase; K29.40 Chronic atrophic gastritis without bleeding; E87.6 Hypokalemia; M47.812 Spondylosis without myelopathy or radiculopathy, cervical region; X58.XXXA Exposure to other specified factors, initial encounter; Z90.79 Acquired absence of other genital organ(s); Z88.0 Allergy status to penicillin; Z91.013 Allergy to seafood; Z68.23 Body mass index [BMI] 23.0-23.9, adult; Y92.89 Other specified places as the place of occurrence of the external cause; Y93.89 Activity, other specified; Y99.8 Other external cause status
CPT/HCPCS: 36415; 36600; 71045; 71250; 72141; 74176; 76937; 80048; 80053; 80202; 80305; 81003; 82040; 82270; 82375; 82607; 82728; 82746; 82805; 82962; 83036; 83540; 83550; 84134; 84145; 84478; 85025; 85384; 86850; 86900; 86920; 87070; 87077; 87186; 87426; 87635; 88304; 93005; 94003; 94640; 96365; 99291; A6261; C1713; C1725; C1758; C9113; J0330; J0690; J0692; J1100; J1815; J1953; J1956; J2250; J2270; J2370; J2405; J2543; J2704; J2710; J2765; J3010; J3370; J3411; J3490; J7030; J7040; J7050; J7060; J7070; J7120; J7121; L0172; P9016; A4315